=== PATIENT | male | born 1945 | race African-American/Black ===

== ENCOUNTER 2019-07-17 15:33 | IRF | payer MEDICARE, OTHER, SELFPAY ==
--- NOTE | ~2019-07-17 | NM_ITS ---
EXAMINATION: NM renal flow and function DATE: 08/09/2019 09:59 INDICATION: Acute kidney injury. TECHNIQUE: 8.5 mCi Tc-99m MAG3 was administered IV. The patient was scanned in the supine position. A posterior abdominal radionuclide angiogram was obtained. A subsequent time course of static images of the kidneys, ureters, and bladder was obtained. COMPARISON: Ultrasound kidneys 08/04/2019 FINDINGS: The posterior abdominal radionuclide angiogram and sequential static images show normal siz e, position, and morphology of the kidneys. Peak renal parenchymal uptake was 4 min in right kidney a nd 21 min in left kidney (normal peak 3-5 minutes). The relative early renal uptake was 73% on the r ight and 27% on the left (<40% is abnormal). No abnormalities of the ureters or bladder are seen. T1/2 for clearance of activity from the right kidney and proximal collecting system was >>20 minutes. T1/2 for clearance of activity from the left kidney and proximal collecting system was >>20 minutes. IMPRESSION: 1. Relatively decreased left kidney function, which is 27% of total renal function. 2. Delayed contrast clearance from both kidneys, consistent with decreased renal function. Reviewed, dictated and finalized at location A. IMPRESSION: 1. Relatively decreased left kidney function, which is 27% of total renal func tion. 2. Delayed contrast clearance from both kidneys, consistent with decreased chelle al function.
--- NOTE | ~2019-07-17 | XR_ITS ---
XR shoulder LT min 2V 07/30/2019 10:21 Indication: Left shoulder pain. Decreased movement. Procedure: 3 views left shoulder Comparison: No prior studies for comparison. Findings: No acute fracture is identified. There are degenerative changes of the acromioclavicular an d glenohumeral joints. There is slight inferior subluxation of the humeral head which may represent p seudosubluxation from joint effusion. Impression: 1: Slight inferior subluxation of the humeral head, possibly pseudosubluxation. No acute fracture krishna ntified. 2: Mild polyarticular osteoarthritis. Reviewed, dictated and finalized at location A. Impression: 1: Slight inferior subluxation of the humeral head, possibly pseudosubluxation. No acute fracture identified. 2: Mild polyarticular osteoarthritis.
--- NOTE | ~2019-07-17 | US_ITS ---
EXAMINATION: US renal BI DATE: 08/04/2019 10:34 INDICATION: Acute kidney injury. TECHNIQUE: Multiple ultrasound grayscale images of the kidneys were obtained. COMPARISON: None. FINDINGS: The right kidney measures 10.8 x 5.3 x 5.8 cm. The left kidney measures 9.3 x 5.1 x 5.4 cm. The kidne ys demonstrate normal parenchymal echogenicity. There is no hydronephrosis. The bladder is normal. IMPRESSION: 1. Normal kidney sizes. No hydronephrosis. Reviewed, dictated and finalized at location A.
--- NOTE | 2019-07-17 15:33 | ADMGEN ---
This patient, Hi Quinn, was admitted to [facility] Room 220-01. Patient/family oriented to hospital policies and general routines including ID bracelet, bed and alarms, visiting hours, pain management, procedures, bathroom and other care routines, personal items, smoking policy, room service/diet, and visiting hours. Valuables list has been completed. Information on how to activate the Rapid Response Team has been discussed. Patient/Family are encouraged to report perceived risks to care and to ask questions if they do not understand what they are told or what they should do.
--- NOTE | 2019-07-17 17:02 | ADMGEN ---
This patient, Hi Quinn, was admitted to [facility] Room 220-01. Patient/family oriented to hospital policies and general routines including ID bracelet, bed and alarms, visiting hours, pain management, procedures, bathroom and other care routines, personal items, smoking policy, room service/diet, and visiting hours. Valuables list has been completed. Information on how to activate the Rapid Response Team has been discussed. Patient/Family are encouraged to report perceived risks to care and to ask questions if they do not understand what they are told or what they should do.
[2019-07-17 17:04] VITALS: BP 152/56; PULSE 78; RESP 20; TEMP 37.3; O2SAT 100; BMI 28.1
[2019-07-17] MEDS: OXYBUTYNIN CHLORIDE 5 MG TABLET PO (17:43)
[2019-07-17 17:44] VITALS: PULSE 78
[2019-07-17] MEDS: carvediloL 6.25 MG TABLET PO (17:44)
[2019-07-17] MEDS: DOXAZOSIN MESYLATE 4 MG TABLET PO (20:23)
[2019-07-17] MEDS: TICAGRELOR 90 MG TABLET PO (20:23)
[2019-07-17 22:00] VITALS: BP 150/90; PULSE 82; RESP 18; TEMP 37.5; O2SAT 99
[2019-07-18] VITALS (8 sets, daily range): BP systolic 136–156; BP diastolic 71–83; PULSE 63–80; RESP 18–20; TEMP 37.1–37.2; O2SAT 98–100; BMI 28.1
[2019-07-18 04:52] LABS: Basophils Percent Auto 0.4 % (0.2-1.2); Eosinophils Absolute Auto 0.3 K/mm3 (0-0.3); Eosinophils Percent Auto 4.2 % (0-4.4); Hematocrit 31.2 % (42.0-52.0); Hemoglobin 10.6 g/dL (14.0-18.0); Immature Granulocyte Absolute 0.02 K/mm3 (0.00-0.031); Immature Granulocyte Percent A 0.3 % (0-0.5); Lymphocytes Absolute Auto 1.14 K/mm3 (0.9-3.2); Lymphocytes Percent Auto 16.9 % (18.3-44.2); Mean Corpuscular Volume 91.2 fl (80-100); Mean Platelet Volume 10.7 fl (7.4-10.4); Monocytes Absolute Auto 0.6 K/mm3 (0.1-0.6); Monocytes Percent Auto 9.1 % (2.6-8.5); Neutrophils Absolute Auto 4.7 K/mm3 (1.3-6.7); Neutrophils Percent Auto 69.1 % (45.5-73.1); Platelet Count Result 382 k/mm3 (150-375); Red Blood Count 3.42 M/mm3 (4.6-6.20); Red Cell Distribution Width 14.9 % (11.5-14.5); White Blood Count 6.7 K/mm3 (4.5-10.0)
[2019-07-18 05:04] LABS: Blood Urea Nitrogen 24 mg/dL (9-20); Carbon Dioxide 22 mmol/L (22-30); Chloride 111 mmol/L (98-107); Estimated CRCL calculation 36 ml/min; Estimated Glomerular Filt Rate > 60; Glucose 109 mg/dL (75-110); Potassium 3.8 mmol/L (3.4-5.0); Sodium 138 mmol/L (137-145)
[2019-07-18] MEDS: carvediloL 6.25 MG TABLET PO ×2 (09:41→16:53)
[2019-07-18] MEDS: ASPIRIN 81 MG CHEWABLE TABLET PO (09:41)
[2019-07-18] MEDS: ASCORBIC ACID 500 MG TABLET PO (09:41)
[2019-07-18] MEDS: TICAGRELOR 90 MG TABLET PO ×2 (09:41→21:16)
[2019-07-18] MEDS: OXYBUTYNIN CHLORIDE 5 MG TABLET PO ×3 (09:41→16:53)
[2019-07-18] MEDS: PANTOPRAZOLE 40 MG TABLET PO (09:41)
[2019-07-18] MEDS: ATORVASTATIN 40 MG TABLET 80 MG PO (09:42)
[2019-07-18] MEDS: polyethylene glycoL 3350 17 GM POWD.PACK PO (09:42)
[2019-07-18] MEDS: LOSARTAN POTASSIUM 100 MG TABLET PO (09:42)
[2019-07-18] MEDS: AMLODIPINE BESYLATE 5 MG TABLET 10 MG PO (09:42)
--- NOTE | 2019-07-18 10:33 | WPDREHABHP ---
H&P: HPI History of Present Illness Chief complaint: cva Narrative: Hi Quinn is a 74 year old male HISTORY OF PRESENT ILLNESS: The patient's primary rehab impairment category is 0 1/stroke The etiologic diagnosis is right internal carotid artery ischemic stroke I saw this patient [id number] on July 18, 2019 at 10:33 a.m. The patient is a 74-year-old right-handed Afro Maltese male with a past medical history of hypertension, tobacco abuse, hypothyroidism, gastroesophageal reflux disease and prostate cancer (status post prostatectomy / radiation ) who presented to [facility] Emergency Department with left-sided hemiparesis, facial droop, left-sided neglect and right gaze preference. He lives at home with son, he called out loudly for his son to come and help him at around 9:30 a.m. on the date happened his son found him on the kitchen floor. His son helped him up to the sofa. The son noticed he was slumping to the left and was unable to get up and take his medications. The son noticed facial drooping and called EMS. NIHSS was 20. TPA was administered at 11:44 a.m. and he was transferred to [facility] for thrombectomy evaluation. NIHSS on arrival to [place] was 12 and tPA was running. CTA showed a right internal carotid occlusion and proximal right M2. CT P showed a core of 0 and penumbra 55 milliliter. Transthoracic echocardiogram showed mild LVH and a PFO present. CT chest at no released was negative for signs of COVID-19. He was taken to the interventional Radiology suite [facility] and angiography was concerning for right cervical internal carotid stenosis without an intracranial lesion. He underwent angioplasty of the blocked region followed by stent placement and June 28, 2019. He was intubated in the interventional radiology suite and per protocol was not extubated. He was transferred to the neuro ICU on nicardipine drip. He was extubated shortly after evolved to ICU and is on room air. He was started on atorvastatin aspirin and Brilinta. He developed mild acute kidney injury and cough following extubation. He is now on room air and his oxygen saturation is 100%. On June 30, 2019 he failed his swallowing evaluation and he was started on tube feedings. He passed for her diet and July 09, 2019 and plans for G-tube were deferred. He has good p.o. intake when he is interested in the food he is presented. On July 03, 2019 he had a bout of supraventricular tachycardia and required adenosine, he aborted and is now on Coreg b.i.d.. Urinalysis was positive for urinary tract infection he was started on 5 day course of ceftriaxone. Cultures were never sent. He will be continued on aspirin atorvastatin Brilinta and he is on heparin for DVT prophylaxis because of dense left-sided almost hemiplegia The patient has not traveled outside the [place] or had contact with someone who is ill that has traveled outside the [place] in the past 21 days. The patient has not traveled to an area of the [place] that is experiencing known transmission of the Coronavirus and has not had close personal contact with anyone that has. The patient does not have a fever. The patient has no lower respiratory illness symptoms. The patient was tested for COVID-19 and July 01, 2019, July 07, 2019, July 12, 2019 and they were all negative. Therapy was initiated at the acute care facility and the patient transferred to us from [facility] on July 17, 2019 on FALLS OR SURGERIES: The patient has had major surgeries in the 100 days prior to admission. They had falls in the past year. They had falls with injury in the past year during this admission carotid stenting and it was followed by thrombectomy. PAST MEDICAL HISTORY: hypertension, tobacco abuse, hypothyroidism, gastroesophageal reflux disease, prostate cancer. PAST SURGICAL HISTORY: Prostatectomy followed by radiation SOCIAL HISTORY: patient is and son lives with the patient in
[2019-07-18] MEDS: HEPARIN SODIUM 5,000 UNITS/ML VIAL 5000 UNITS SUB-Q ×2 (13:18→21:16)
[2019-07-18] MEDS: IBUPROFEN 400 MG TABLET 800 MG PO (15:25)
--- NOTE | 2019-07-18 16:44 | RPD ---
INDIVIDUALIZED PLAN OF CARE FOR Hi Quinn Brief Synthesis of Pre-Admission Screen, Post-Admission Evaluation and Therapy Evaluations: The patient presents to rehab with right ICA ischemic stroke. Comorbidities include status post carotid angioplasty and stenting, hypertension, dysphagia, respiratory insufficiency, supraventricular tachycardia, history of prostate cancer, hypothyroidism, urinary tract infection, diabetes mellitus.The patient requires physician services for neurology services, medical oversight, and coordination of care.The patient needs physician monitoring and treatment of diabetes, supraventricular tachycardia, monitoring for adverse reactions to new medications, and monitoring for infection. The patient requires nursing services for frequent neuro checks, anticoagulation therapy, medication management and education, pressure relief and skin care management, monitoring of labs, bowel and bladder training, diabetes management and education, and fall/safety precautions. Deficits include:ADLs, Balance, Endurance, Family Training/Education, Mobility, ROM, Safety, Strength, Swallowing, Transfers, Cognition Track Grinder/Case Management for: Discharge Planning and Patient/Family Counseling Physical Therapy: 5 days per week for 60 minutes. Treatments may include: Therapeutic Exercise, Gait Training, Neuromuscular Re-education, Transfer Training, Community Reintegration, Bed Mobility, Patient/Family Education, Wheelchair Mobility Group Therapy/Concurrent Therapy Rationales: -Improve attention span during functional activities in a distracted environment. -Enhance problem solving and/or adequate judgment skills during functional activities in a distracted environment. -Promote increased safety awareness in a distracted environment to reduce fall risk with functional tasks, transfers, and ambulation to allow a more safe, self-sufficient return to the home environment. -Improve dynamic balance skills to promote safety and independence with functional activities in a distracted environment for maximum gain. Occupational Therapy: 5 days per week for 60 minutes. Treatments may include: Therapeutic Exercise, Therapeutic Activity, Cognitive Training, Self-Care Transfer Training, Community Reintegration, Home Management, Patient/Family Education, Wheelchair Mobility Training, Energy Conservation Training Group Therapy/Concurrent Therapy Rationales: -Allow therapist to observe and teach generalization and carry-over of skills learned in individual therapy. -Enhance problem solving and sequencing skills during therapeutic activities in a distracted environment. -Promote increased safety awareness in a realistic setting to reduce fall risk with functional tasks due to visual and verbal distractions. -Increase functional level with ADLs, ADL transfers and use of adaptive equipment through therapeutic activities with others while promoting safety to allow a more safe, self-sufficient return home. Speech Therapy: 5 days per week for 60 minutes. Treatments may include: Dysphasia Therapy, Speech/Language/Communication Therapy, Cognitive Training, Patient/Family Education Group Therapy/Concurrent Therapy - Rationale: -Allow therapist to observe and teach generalization and carry-over of skills learned in individual therapy. -Improve comprehension skills with complex or abstract ideas through discussion in a realistic setting. -Enhance problem solving skills with complex issues during activities in a distracted environment. -Promote increased memory skills and concentration in a distracted environment for a safe transition home. -Improve attention and focus with language/communication skills in a realistic and supportive therapeutic setting. -Allow for practice of expression of basic needs and ideas through functional activities with others. Medical Prognosis: Good Anticipated Length of Stay: 21 days Rehab Goals: Eating Goal: 06-Independent Oral Hygiene [place]
--- NOTE | 2019-07-18 17:22 | PCSTNOTE ---
Please refer to the Bedside Swallow Evaluation in the EMR.
[2019-07-18] MEDS: DOXAZOSIN MESYLATE 4 MG TABLET PO (21:16)
[2019-07-19] VITALS (7 sets, daily range): BP systolic 145–169; BP diastolic 64–75; PULSE 75–86; RESP 20; TEMP 36.6–37.3; O2SAT 97–100
[2019-07-19] MEDS: HEPARIN SODIUM 5,000 UNITS/ML VIAL 5000 UNITS SUB-Q ×3 (05:19→20:41)
[2019-07-19] MEDS: PANTOPRAZOLE 40 MG TABLET PO (10:12)
[2019-07-19] MEDS: ATORVASTATIN 40 MG TABLET 80 MG PO (10:12)
[2019-07-19] MEDS: OXYBUTYNIN CHLORIDE 5 MG TABLET PO ×3 (10:12→17:44)
[2019-07-19] MEDS: LOSARTAN POTASSIUM 100 MG TABLET PO (10:12)
[2019-07-19] MEDS: ASPIRIN 81 MG CHEWABLE TABLET PO (10:13)
[2019-07-19] MEDS: ASCORBIC ACID 500 MG TABLET PO (10:13)
[2019-07-19] MEDS: carvediloL 6.25 MG TABLET PO ×2 (10:13→17:44)
[2019-07-19] MEDS: AMLODIPINE BESYLATE 5 MG TABLET 10 MG PO (10:13)
[2019-07-19] MEDS: CHOLECALCIFEROL 1,000 UNIT TABLET 5000 UNITS PO (10:13)
[2019-07-19] MEDS: TICAGRELOR 90 MG TABLET PO ×2 (10:14→20:42)
[2019-07-19] MEDS: polyethylene glycoL 3350 17 GM POWD.PACK PO (10:14)
--- NOTE | 2019-07-19 11:43 | WPDNEURORHBP ---
Subjective Date/time seen: 07/19/19 11:43 Interval history: this 74-year-old Afro-[place] gentleman is here after having had a right hemispheric stroke with significant left-sided hemiparesis left-sided neglect and left-sided visual field defect he is stable denies any headache nausea vomiting chest pain or shortness of breath medications were reviewed and confirmed Review of Systems Review of Systems: All systems reviewed & are unremarkable except as noted in HPI and below Functional Status Ambulation Ability Ambulation Assistive Devices: Parallel Bars Transfers Ability Ability to Transfer In/Out of Chair: Maximum Assistance X 1 Exam Const: General: comfortable and no acute distress HENMT: General nose exam: Normal nares present Mouth: Yes moist mucous membranes Eyes: General: appearance normal, both eyes and all related structures Neck: Neck: supple and no JVD Resp: Effort & Inspection: normal respiratory effort Auscultation: clear to auscultation bilaterally Cardio: Rate: regular rate Rhythm: regular rhythm GI: GI Palp: Yes Soft to palpation Auscultation: normal bowel sounds Skin: General skin exam: normal color and no rashes or lesions noted Neuro: Other: patient is awake and alert will oriented has a left-sided dense hemiparesis left-sided visual field defect and left-sided neglect and needs significant assistance is all the activities of daily living Extrem: General: normal to inspection Psych: Mental Status: mental status grossly normal Objective Data Vital Signs Vital Signs: Vital Signs - 24 hr 07/18/19 14:00 07/18/19 15:25 07/18/19 16:53 Temperature 37.2 C 37.2 C Pulse Rate 80 80 Respiratory Rate 18 Blood Pressure 136/83 Pulse Oximetry 100 07/18/19 20:00 07/18/19 22:00 07/19/19 06:00 Temperature 37.1 C 37.1 C Pulse Rate 63 63 86 Respiratory Rate 20 20 20 Blood Pressure 138/71 169/75 H Pulse Oximetry 98 98 100 07/19/19 08:00 07/19/19 10:13 Temperature Pulse Rate 86 86 Respiratory Rate 20 Blood Pressure Pulse Oximetry 100 Intake/Output Intake/Output: Intake & Output 07/16/19 07/17/19 07/18/19 07/19/19 23:59 23:59 23:59 23:59 Intake Total 240 840 240 Balance 240 840 240 Meds/Results Medications: Active Medications Generic Name Dose Route Start Last Admin Trade Name Freq PRN Reason Stop Dose Admin Acetaminophen 650 mg 07/17/19 17:06 Tylenol Tablet PO Q4H PRN Pain (Scale Score 1-3) Amlodipine Besylate 10 mg 07/18/19 09:00 07/19/19 10:13 Norvasc PO 10 mg DAILY GREER Administration Ascorbic Acid 500 mg 07/18/19 09:00 07/19/19 10:13 Vitamin C PO 500 mg DAILY GREER Administration Aspirin 81 mg 07/18/19 09:00 07/19/19 10:13 Aspirin Chewable PO 81 mg DAILY GREER Administration Atorvastatin Calcium 80 mg 07/18/19 09:00 07/19/19 10:12 Lipitor PO 80 mg DAILY GREER Administration Carvedilol 6.25 mg 07/17/19 17:20 07/19/19 10:13 Coreg PO 6.25 mg BIDWM GREER Administration Doxazosin Mesylate 4 mg 07/17/19 21:00 07/18/19 21:16 Cardura PO 4 mg HS GREER Administration Heparin Sodium (Porcine) 5,000 units 07/18/19 14:00 07/19/19 05:19 Heparin Sodium SUB-Q 5,000 units Q8HR GREER Administration Ibuprofen 800 mg 07/17/19 17:06 07/18/19 15:25 Motrin PO 800 mg TID PRN Administration Moderate Pain (Scale Score 5-6) Losartan Potassium 100 mg 07/18/19 09:00 07/19/19 10:12 Cozaar PO 100 mg DAILY GREER Administration Oxybutynin Chloride 5 mg 07/17/19 17:15 07/19/19 10:12 Ditropan PO 5 mg TID GREER Administration Pantoprazole Sodium 40 mg 07/18/19 09:00 07/19/19 10:12 Protonix PO 40 mg QAM GREER Administration Polyethylene Glycol 17 gm 07/18/19 09:00 07/19/19 10:14 Miralax PO 17 gm DAILY GREER Administration Ticagrelor 90 mg 07/17/19 21:00 07/19/19 10:14 Brilinta PO 90 mg Q12HR GREER Administration Vitamin
[2019-07-19] MEDS: DOXAZOSIN MESYLATE 4 MG TABLET PO (20:41)
[2019-07-20] VITALS (7 sets, daily range): BP systolic 119–145; BP diastolic 56–67; PULSE 74–76; RESP 20; TEMP 37.2–38.4; O2SAT 96–100
[2019-07-20] MEDS: HEPARIN SODIUM 5,000 UNITS/ML VIAL 5000 UNITS SUB-Q ×3 (05:24→20:40)
[2019-07-20] MEDS: ASPIRIN 81 MG CHEWABLE TABLET PO (08:42)
[2019-07-20] MEDS: ASCORBIC ACID 500 MG TABLET PO (08:42)
[2019-07-20] MEDS: OXYBUTYNIN CHLORIDE 5 MG TABLET PO ×4 (08:42→20:40)
[2019-07-20] MEDS: ATORVASTATIN 40 MG TABLET 80 MG PO (08:42)
[2019-07-20] MEDS: TICAGRELOR 90 MG TABLET PO ×2 (08:42→20:40)
[2019-07-20] MEDS: PANTOPRAZOLE 40 MG TABLET PO (08:43)
[2019-07-20] MEDS: AMLODIPINE BESYLATE 5 MG TABLET 10 MG PO (08:43)
[2019-07-20] MEDS: carvediloL 6.25 MG TABLET PO ×2 (08:43→17:23)
[2019-07-20] MEDS: polyethylene glycoL 3350 17 GM POWD.PACK PO (08:44)
[2019-07-20] MEDS: LOSARTAN POTASSIUM 100 MG TABLET PO (08:50)
--- NOTE | 2019-07-20 15:16 | WPDNEURORHBP ---
Subjective Date/time seen: 07/20/19 15:16 Interval history: the patient is here post stroke with left-sided hemiplegia he is improving slowly denies any headache nausea vomiting chest pain or shortness of breath no fever chills or sore throat Review of Systems Review of Systems: All systems reviewed & are unremarkable except as noted in HPI and below Functional Status Ambulation Ability Ability to Ambulate 10 Feet: Maximum Assistance X 1 Ambulation Assistive Devices: Parallel Bars Transfers Ability Ability to Transfer In/Out of Chair: Maximum Assistance X 1 Exam Const: General: comfortable and no acute distress HENMT: General nose exam: Normal nares present Mouth: Yes moist mucous membranes Eyes: General: appearance normal, both eyes and all related structures Neck: Neck: supple and no JVD Resp: Effort & Inspection: normal respiratory effort Auscultation: clear to auscultation bilaterally Cardio: Rate: regular rate Rhythm: regular rhythm GI: GI Palp: Yes Soft to palpation Auscultation: normal bowel sounds Skin: General skin exam: normal color and no rashes or lesions noted Neuro: Other: patient is awake and alert well oriented is pretty much communicative and not any distress left-sided hemiplegia is stable with slow improvement he is engaged and quite motivated Extrem: General: normal to inspection Psych: Mental Status: mental status grossly normal Objective Data Vital Signs Vital Signs: Vital Signs - 24 hr 07/19/19 17:44 07/19/19 20:00 07/19/19 22:00 Temperature 37.3 C Pulse Rate 82 75 75 Respiratory Rate 20 20 Blood Pressure 145/64 H Pulse Oximetry 97 97 07/20/19 06:00 07/20/19 08:43 Temperature 37.2 C Pulse Rate 76 76 Respiratory Rate 20 Blood Pressure 145/67 H Pulse Oximetry 96 Intake/Output Intake/Output: Intake & Output 07/17/19 07/18/19 07/19/19 07/20/19 23:59 23:59 23:59 23:59 Intake Total 240 840 720 240 Balance 240 840 720 240 Meds/Results Medications: Active Medications Generic Name Dose Route Start Last Admin Trade Name Freq PRN Reason Stop Dose Admin Acetaminophen 650 mg 07/17/19 17:06 Tylenol Tablet PO Q4H PRN Pain (Scale Score 1-3) Amlodipine Besylate 10 mg 07/18/19 09:00 07/20/19 08:43 Norvasc PO 10 mg DAILY GREER Administration Ascorbic Acid 500 mg 07/18/19 09:00 07/20/19 08:42 Vitamin C PO 500 mg DAILY GREER Administration Aspirin 81 mg 07/18/19 09:00 07/20/19 08:42 Aspirin Chewable PO 81 mg DAILY GREER Administration Atorvastatin Calcium 80 mg 07/18/19 09:00 07/20/19 08:42 Lipitor PO 80 mg DAILY GREER Administration Carvedilol 6.25 mg 07/17/19 17:20 07/20/19 08:43 Coreg PO 6.25 mg BIDWM GREER Administration Doxazosin Mesylate 4 mg 07/17/19 21:00 07/19/19 20:41 Cardura PO 4 mg HS GREER Administration Heparin Sodium (Porcine) 5,000 units 07/18/19 14:00 07/20/19 13:07 Heparin Sodium SUB-Q 5,000 units Q8HR GREER Administration Ibuprofen 800 mg 07/17/19 17:06 07/18/19 15:25 Motrin PO 800 mg TID PRN Administration Moderate Pain (Scale Score 5-6) Losartan Potassium 100 mg 07/18/19 09:00 07/20/19 08:50 Cozaar PO 100 mg DAILY GREER Administration Oxybutynin Chloride 5 mg 07/17/19 17:15 07/20/19 13:07 Ditropan PO 5 mg TID GREER Administration Pantoprazole Sodium 40 mg 07/18/19 09:00 07/20/19 08:43 Protonix PO 40 mg QAM GREER Administration Polyethylene Glycol 17 gm 07/18/19 09:00 07/20/19 08:44 Miralax PO 17 gm DAILY GREER Administration Ticagrelor 90 mg 07/17/19 21:00 07/20/19 08:42 Brilinta PO 90 mg Q12HR GREER Administration Tramadol HCl 50 mg 07/19/19 12:57 Ultram PO Q4H PRN Pain Rated 4-6 Vitamin D 5,000 unit 07/19/19 09:00 07/19/19 10:13 Vitamin D PO 5,000 unit [id number] GREER Administration Progress Note: A&P Assessment and Plan (1) Status post ad
[2019-07-20] MEDS: DOXAZOSIN MESYLATE 4 MG TABLET PO (20:40)
[2019-07-20] MEDS: SENNOSIDES 8.6 MG TABLET PO (20:40)
[2019-07-21] MEDS: HEPARIN SODIUM 5,000 UNITS/ML VIAL 5000 UNITS SUB-Q ×3 (05:56→20:33)
[2019-07-21 06:00] VITALS: BP 150/78; PULSE 94; RESP 18; TEMP 36.9; O2SAT 95
[2019-07-21 09:41] VITALS: PULSE 94
[2019-07-21] MEDS: carvediloL 6.25 MG TABLET PO ×2 (09:41→17:42)
[2019-07-21] MEDS: AMLODIPINE BESYLATE 5 MG TABLET 10 MG PO (09:41)
[2019-07-21] MEDS: ASPIRIN 81 MG CHEWABLE TABLET PO (09:41)
[2019-07-21] MEDS: ASCORBIC ACID 500 MG TABLET PO (09:42)
[2019-07-21] MEDS: TICAGRELOR 90 MG TABLET PO ×2 (09:42→20:31)
[2019-07-21] MEDS: LOSARTAN POTASSIUM 100 MG TABLET PO ×2 (09:42→20:31)
[2019-07-21] MEDS: ATORVASTATIN 40 MG TABLET 80 MG PO (09:43)
[2019-07-21] MEDS: PANTOPRAZOLE 40 MG TABLET PO (09:43)
[2019-07-21 10:05] VITALS: PULSE 96; RESP 18; O2SAT 94
[2019-07-21] MEDS: OXYBUTYNIN CHLORIDE 5 MG TABLET PO ×2 (12:54→17:42)
[2019-07-21 14:00] VITALS: BP 137/61; PULSE 70; RESP 16; TEMP 37.4; O2SAT 100
[2019-07-21 17:42] VITALS: PULSE 68
--- NOTE | 2019-07-21 17:56 | WPDNEURORHBP ---
Subjective Date/time seen: 07/21/19 17:56 Interval history: this 74-year-old from a [place] gentleman is here after having had a right hemispheric stroke with left-sided hemiparesis he is doing fairly well engage in therapy and motivated and slowly improving He does not have headache nausea vomiting chest pain shortness of breath fever chills sore throat Review of Systems Review of Systems: All systems reviewed & are unremarkable except as noted in HPI and below Functional Status Ambulation Ability Ability to Ambulate 10 Feet: Maximum Assistance X 1 Ambulation Assistive Devices: Parallel Bars Transfers Ability Ability to Transfer In/Out of Chair: Maximum Assistance X 1 Exam Const: General: comfortable and no acute distress HENMT: General nose exam: Normal nares present Mouth: Yes moist mucous membranes Eyes: General: appearance normal, both eyes and all related structures Neck: Neck: supple and no JVD Resp: Effort & Inspection: normal respiratory effort Auscultation: clear to auscultation bilaterally Cardio: Rate: regular rate Rhythm: regular rhythm GI: GI Palp: Yes Soft to palpation Auscultation: normal bowel sounds Skin: General skin exam: normal color and no rashes or lesions noted Neuro: Other: patient is awake and alert well oriented with fluent speech language functions and moderately severe left-sided hemiparesis left-sided neglect and left-sided visual field defect Extrem: General: normal to inspection Psych: Mental Status: mental status grossly normal Objective Data Vital Signs Vital Signs: Vital Signs - 24 hr 07/20/19 20:00 07/20/19 21:51 07/21/19 06:00 Temperature 38.4 C H 36.9 C Pulse Rate 74 74 94 Respiratory Rate 20 20 18 Blood Pressure 132/60 150/78 H Pulse Oximetry 99 99 95 07/21/19 09:41 07/21/19 10:05 07/21/19 14:00 Temperature 37.4 C Pulse Rate 94 96 70 Respiratory Rate 18 16 Blood Pressure 137/61 Pulse Oximetry 94 100 07/21/19 17:42 Temperature Pulse Rate 68 Respiratory Rate Blood Pressure Pulse Oximetry Intake/Output Intake/Output: Intake & Output 07/18/19 07/19/19 07/20/19 07/21/19 23:59 23:59 23:59 23:59 Intake Total 840 720 720 720 Balance 840 720 720 720 Meds/Results Medications: Active Medications Generic Name Dose Route Start Last Admin Trade Name Freq PRN Reason Stop Dose Admin Acetaminophen 650 mg 07/17/19 17:06 Tylenol Tablet PO Q4H PRN Pain (Scale Score 1-3) Amlodipine Besylate 10 mg 07/22/19 12:00 Norvasc PO NOON [facility] Ascorbic Acid 500 mg 07/18/19 09:00 07/21/19 09:42 Vitamin C PO 500 mg DAILY GREER Administration Aspirin 81 mg 07/18/19 09:00 07/21/19 09:41 Aspirin Chewable PO 81 mg DAILY GREER Administration Atorvastatin Calcium 80 mg 07/22/19 12:00 Lipitor PO NOON GREER Carvedilol 6.25 mg 07/17/19 17:20 07/21/19 17:42 Coreg PO 6.25 mg BIDWM GREER Administration Doxazosin Mesylate 4 mg 07/17/19 21:00 07/20/19 20:40 Cardura PO 4 mg HS GREER Administration Heparin Sodium (Porcine) 5,000 units 07/18/19 14:00 07/21/19 12:55 Heparin Sodium SUB-Q 5,000 units Q8HR GREER Administration Ibuprofen 800 mg 07/17/19 17:06 07/18/19 15:25 Motrin PO 800 mg TID PRN Administration Moderate Pain (Scale Score 5-6) Losartan Potassium 100 mg 07/21/19 21:00 Cozaar PO HS GREER Oxybutynin Chloride 5 mg 07/17/19 17:15 07/21/19 17:42 Ditropan PO 5 mg TID GREER Administration Pantoprazole Sodium 40 mg 07/18/19 09:00 07/21/19 09:43 Protonix PO 40 mg QAM GREER Administration Senna 8.6 mg 07/20/19 21:00 07/20/19 20:40 Senokot Tablet PO 8.6 mg HS GREER Administration Ticagrelor 90 mg 07/17/19 21:00 07/21/19 09:42 Brilinta PO 90 mg Q12HR GREER Administration Tramadol HCl 50 mg 07/19/19 12:57 Ultram PO Q4H PRN Pain Rated 4-6 Vitamin D 5,000 unit 07/19/19 09:00 07/19/19 10:
[2019-07-21] MEDS: DOXAZOSIN MESYLATE 4 MG TABLET PO (20:30)
[2019-07-21] MEDS: SENNOSIDES 8.6 MG TABLET PO (20:31)
[2019-07-21 22:00] VITALS: BP 146/87; PULSE 65; RESP 18; TEMP 38; O2SAT 100
[2019-07-22] MEDS: HEPARIN SODIUM 5,000 UNITS/ML VIAL 5000 UNITS SUB-Q ×3 (05:31→20:23)
[2019-07-22 05:59] VITALS: BP 125/61; PULSE 69; RESP 18; TEMP 37.6; O2SAT 100
[2019-07-22] MEDS: OXYBUTYNIN CHLORIDE 5 MG TABLET PO ×3 (08:25→17:40)
[2019-07-22 08:26] VITALS: PULSE 69
[2019-07-22] MEDS: ASPIRIN 81 MG CHEWABLE TABLET PO (08:26)
[2019-07-22] MEDS: ASCORBIC ACID 500 MG TABLET PO (08:26)
[2019-07-22] MEDS: carvediloL 6.25 MG TABLET PO ×2 (08:26→17:40)
[2019-07-22] MEDS: CHOLECALCIFEROL 1,000 UNIT TABLET 5000 UNITS PO (08:26)
[2019-07-22] MEDS: TICAGRELOR 90 MG TABLET PO ×2 (08:26→20:23)
[2019-07-22] MEDS: PANTOPRAZOLE 40 MG TABLET PO (08:26)
--- NOTE | 2019-07-22 09:42 | WPDNEURORHBP ---
Subjective Date/time seen: 09:42 Left hemiparesis ,hypertension,Gerd, prostatic cancer Review of Systems Review of Systems: All systems reviewed & are unremarkable except as noted in HPI and below Functional Status Ambulation Ability Ability to Ambulate 10 Feet: Maximum Assistance X 1 Ambulation Assistive Devices: Parallel Bars Transfers Ability Ability to Transfer In/Out of Chair: Maximum Assistance X 1 Exam Const: General: cooperative, comfortable and no acute distress HENMT: Head: normal to inspection General nose exam: Normal external nose present and No nasal discharge present Mouth: Yes Normal oral and palatal mucosa present Eyes: General: appearance normal, both eyes and all related structures Neck: Neck: full ROM Resp: Effort & Inspection: normal respiratory effort Auscultation: clear to auscultation bilaterally Cardio: Rate: regular rate Rhythm: regular rhythm GI: Percussion: Yes normal to percussion Auscultation: normal bowel sounds Skin: General skin exam: no rashes or lesions noted Neuro: General: patient oriented x3 and moves all extremities Cranial nerves: Yes Equal, round and reactive pupils present, Yes Bilaterally intact EOM present, Yes Nystagmus not present, Yes Midline tongue present, Yes Ability to bilaterally rotate head present and Yes Ability to bilaterally elevate shoulders present Cognition (Neuro): normal cognition Speech: normal speech Gait exam (Neuro): Assisted gait required Motor exam (neuro): Abnormal motor strength present (left hemiparesis) Sensory Exam: Sensory deficit (Neuro) Extrem: General: normal to inspection Psych: Appearance: grossly normal Objective Data Vital Signs Vital Signs: Vital Signs - 24 hr 07/21/19 10:05 07/21/19 14:00 07/21/19 17:42 Temperature 37.4 C Pulse Rate 96 70 68 Respiratory Rate 18 16 Blood Pressure 137/61 Pulse Oximetry 94 100 07/21/19 22:00 07/22/19 05:59 07/22/19 08:26 Temperature 38.0 C H 37.6 C Pulse Rate 65 69 69 Respiratory Rate 18 18 Blood Pressure 146/87 H 125/61 Pulse Oximetry 100 100 Intake/Output Intake/Output: Intake & Output 07/19/19 07/20/19 07/21/19 07/22/19 23:59 23:59 23:59 23:59 Intake Total 558 381 3522 240 Balance 486 344 1349 240 Meds/Results Medications: Active Medications Generic Name Dose Route Start Last Admin Trade Name Freq PRN Reason Stop Dose Admin Acetaminophen 650 mg 07/17/19 17:06 Tylenol Tablet PO Q4H PRN Pain (Scale Score 1-3) Amlodipine Besylate 10 mg 07/22/19 12:00 Norvasc PO NOON [facility] Ascorbic Acid 500 mg 07/18/19 09:00 07/22/19 08:26 Vitamin C PO 500 mg DAILY GREER Administration Aspirin 81 mg 07/18/19 09:00 07/22/19 08:26 Aspirin Chewable PO 81 mg DAILY GREER Administration Atorvastatin Calcium 80 mg 07/22/19 12:00 Lipitor PO NOON [facility]ER Carvedilol 6.25 mg 07/17/19 17:20 07/22/19 08:26 Coreg PO 6.25 mg BIDWM GREER Administration Doxazosin Mesylate 4 mg 07/17/19 21:00 07/21/19 20:30 Cardura PO 4 mg HS GREER Administration Heparin Sodium (Porcine) 5,000 units 07/18/19 14:00 07/22/19 05:31 Heparin Sodium SUB-Q 5,000 units Q8HR [facility]ER Administration Ibuprofen 800 mg 07/17/19 17:06 07/18/19 15:25 Motrin PO 800 mg TID PRN Administration Moderate Pain (Scale Score 5-6) Losartan Potassium 100 mg 07/21/19 21:00 07/21/19 20:31 Cozaar PO 100 mg HS GREER Administration Oxybutynin Chloride 5 mg 07/17/19 17:15 07/22/19 08:25 Ditropan PO 5 mg TID GREER Administration Pantoprazole Sodium 40 mg 07/18/19 09:00 07/22/19 08:26 Protonix PO 40 mg QAM GREER Administration Senna 8.6 mg 07/20/19 21:00 07/21/19 20:31 Senokot Tablet PO 8.6 mg HS GREER Administration Ticagrelor 90 mg 07/17/19 21:00 07/22/19 08:26 Brilinta PO 90 mg Q12HR GREER Administration Tramadol HCl 50 mg 07/19/19 12:57 Ultram PO Q4H
--- NOTE | 2019-07-22 10:17 | PCPTNOTE ---
Shayla Rich WILVER Mclean completed an inpatient rehab wheelchair evaluation on Hi Quinn on 07/22/2019. The patient is unable to safely and independently ambulate household distances due to their current impairments. Their diagnosis is cva and their impairments include decreased strength, decreased endurance, decreased range of motion, decreased balance, and lower extremity weakness. Hi's weight bearing status is weight-bearing as tolerated on the bilateral lower legs. The patient demonstrates significant functional mobility limitations that impair their ability to participate in mobility-related activities of daily living (MRADLs), including toileting, feeding, dressing, grooming, and bathing in the customary locations in the home. These limitations cannot be sufficiently resolved by the use of an appropriately fitted cane or walker. It is recommended that the patient utilize a wheelchair for functional mobility within the home in order to facilitate optimal safety, independence and participation in all MRADL's and adequately access their home environment on a regular basis. The patient's home provides adequate access between rooms, maneuvering space, and surfaces to accommodate the recommended wheelchair. The use of a wheelchair for functional mobility is strongly recommended and the patient is receptive to using the wheelchair. The use of this wheelchair will significantly improve the patient's ability to participate in MRADLS and the patient will use it on a regular basis in the home. This will facilitate optimal safety, independence, and participation. The patient has demonstrated sufficient physical and mental capabilities needed to safely propel a manual wheelchair that is provided in the home during a typical day. Recommended Wheelchair Frame: standard Recommended Wheelchair Size: 18x18 Recommended Wheelchair Cushion:standard Wheelchair Leg Recommendations: swing away leg rests - Anti-tippers are recommended due to patient demonstrating increased risk for falls. They would benefit from anti-tippers with added safety and stabilization. -A LEFT arm trough is recommended because the patient has hemiplegia. -A LEFT break drug regulatory affairs specialist is recommended to facilitate independence with wheelchair breaks management due to hemiplegia of left side. Shayla Mclean PARKING ATTENDANT 07/22/2019 Evaluating Therapist Date I agree with and certify that the above recommendation is medically necessary. Referring Physician Date I agree with and certify that the above recommendation is medically necessary. Referring Physician Date
[2019-07-22] MEDS: ATORVASTATIN 40 MG TABLET 80 MG PO (13:25)
[2019-07-22] MEDS: AMLODIPINE BESYLATE 5 MG TABLET 10 MG PO (13:26)
[2019-07-22 14:00] VITALS: BP 128/64; PULSE 68; RESP 18; TEMP 36.5; O2SAT 97
[2019-07-22 17:40] VITALS: PULSE 68
[2019-07-22] MEDS: SENNOSIDES 8.6 MG TABLET PO (20:23)
[2019-07-22] MEDS: LOSARTAN POTASSIUM 100 MG TABLET PO (20:23)
[2019-07-22] MEDS: DOXAZOSIN MESYLATE 4 MG TABLET PO (20:23)
[2019-07-22 22:00] VITALS: BP 153/71; PULSE 77; RESP 18; TEMP 37.2; O2SAT 100
[2019-07-23] MEDS: HEPARIN SODIUM 5,000 UNITS/ML VIAL 5000 UNITS SUB-Q ×3 (05:34→21:14)
[2019-07-23 06:00] VITALS: BP 146/79; PULSE 97; RESP 18; TEMP 36.9; O2SAT 100
[2019-07-23 08:00] VITALS: PULSE 97; RESP 18; O2SAT 100
[2019-07-23 10:29] VITALS: PULSE 97
[2019-07-23] MEDS: OXYBUTYNIN CHLORIDE 5 MG TABLET PO ×3 (10:29→17:51)
[2019-07-23] MEDS: carvediloL 6.25 MG TABLET PO ×2 (10:29→17:51)
[2019-07-23] MEDS: ASCORBIC ACID 500 MG TABLET PO (10:29)
[2019-07-23] MEDS: PANTOPRAZOLE 40 MG TABLET PO (10:29)
[2019-07-23] MEDS: ASPIRIN 81 MG CHEWABLE TABLET PO (10:29)
[2019-07-23] MEDS: TICAGRELOR 90 MG TABLET PO ×2 (10:30→21:15)
--- NOTE | 2019-07-23 13:08 | PCDIET ---
Nutrition Follow-Up Complete: Nutrition Diagnosis: Decreased sodium needs related to cardiovascular disease as evidenced by hx CVA, HTN. Nutrition Goal: Patient to consume 75% of meals or greater. Goal met. Patient consuming 100% of most meals on regular diet. Last recorded weight is 74.5 kg. Recommend obtaining new weight. Bowel Motility: +BM today. Labs Reviewed: No new chemistry available. Meds Noted: Vitamin C, Protonix, Senna, Vitamin D Additional Notes: No documented skin breakdown. Will continue to monitor with same goal. Nutrition Monitoring and Evaluation: Follow up every 7 days.
--- NOTE | 2019-07-23 13:19 | WPDNEURORHBP ---
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 and left-sided neglect speech is involved the patient is doing fairly well his vitamins have been discontinued according to his desire from the nursing standpoint he is doing fairly well is on heparin for DVT prophylaxis on occupational therapy on a is doing fairly well and PT he is taking a few steps He denies any headache nausea vomiting chest pain shortness of breath fever chills or sore throat Review of Systems Review of Systems: All systems reviewed & are unremarkable except as noted in HPI and below Functional Status Ambulation Ability Ability to Ambulate 10 Feet: Moderate Assistance X 1 Ambulation Assistive Devices: Railings Transfers Ability Ability to Transfer In/Out of Chair: Maximum Assistance X 1 Exam Const: General: comfortable and no acute distress HENMT: General nose exam: Normal nares present Mouth: Yes moist mucous membranes Eyes: General: appearance normal, both eyes and all related structures Neck: Neck: supple and no JVD Resp: Effort & Inspection: normal respiratory effort Auscultation: clear to auscultation bilaterally Cardio: Rate: regular rate Rhythm: regular rhythm GI: GI Palp: Yes Soft to palpation Auscultation: normal bowel sounds Skin: General skin exam: normal color and no rashes or lesions noted Neuro: Other: patient is awake and alert well oriented has left-sided visual field defect left-sided neglect and cognitive deficit related to right cerebral hemisphere and of course moderately severe left-sided hemiparesis Extrem: General: normal to inspection Psych: Mental Status: mental status grossly normal Objective Data Vital Signs Vital Signs: Vital Signs - 24 hr 07/22/19 14:00 07/22/19 17:40 07/22/19 22:00 Temperature 36.5 C 37.2 C Pulse Rate 68 68 77 Respiratory Rate 18 18 Blood Pressure 128/64 153/71 H Pulse Oximetry 97 100 07/23/19 06:00 07/23/19 08:00 07/23/19 10:29 Temperature 36.9 C Pulse Rate 97 97 97 Respiratory Rate 18 18 Blood Pressure 146/79 H Pulse Oximetry 100 100 Intake/Output Intake/Output: Intake & Output 07/20/19 07/21/19 07/22/19 07/23/19 23:59 23:59 23:59 23:59 Intake Total 720 1200 960 360 Balance 720 1200 960 360 Meds/Results Medications: Active Medications Generic Name Dose Route Start Last Admin Trade Name Freq PRN Reason Stop Dose Admin Acetaminophen 650 mg 07/17/19 17:06 Tylenol Tablet PO Q4H PRN Pain (Scale Score 1-3) Amlodipine Besylate 10 mg 07/22/19 12:00 07/22/19 13:26 Norvasc PO 10 mg NOON GREER Administration Ascorbic Acid 500 mg 07/18/19 09:00 07/23/19 10:29 Vitamin C PO 500 mg DAILY GREER Administration Aspirin 81 mg 07/18/19 09:00 07/23/19 10:29 Aspirin Chewable PO 81 mg DAILY GREER Administration Atorvastatin Calcium 80 mg 07/22/19 12:00 07/22/19 13:25 Lipitor PO 80 mg NOON GREER Administration Carvedilol 6.25 mg 07/17/19 17:20 07/23/19 10:29 Coreg PO 6.25 mg BIDWM GREER Administration Doxazosin Mesylate 4 mg 07/17/19 21:00 07/22/19 20:23 Cardura PO 4 mg HS GREER Administration Heparin Sodium (Porcine) 5,000 units 07/18/19 14:00 07/23/19 05:34 Heparin Sodium SUB-Q 5,000 units Q8HR GREER Administration Ibuprofen 800 mg 07/17/19 17:06 07/18/19 15:25 Motrin PO 800 mg TID PRN Administration Moderate Pain (Scale Score 5-6) Losartan Potassium 100 mg 07/21/19 21:00 07/22/19 20:23 Cozaar PO 100 mg HS GREER Administration Oxybutynin Chloride 5 mg 07/17/19 17:15 07/23/19 10:29 Ditropan PO 5 mg TID GREER Administration Pantoprazole Sodium 40 mg 07/18/19 09:00 07/23/19 10:29 Protonix PO 40 mg QAM GREER Administration Senna 8.6 mg 07/20/19 21:00 07/22/19 20:23 Senokot Tablet PO
[2019-07-23] MEDS: ATORVASTATIN 40 MG TABLET 80 MG PO (13:25)
[2019-07-23] MEDS: AMLODIPINE BESYLATE 5 MG TABLET 10 MG PO (13:25)
[2019-07-23 14:00] VITALS: BP 161/94; PULSE 89; RESP 18; TEMP 37.4; O2SAT 100
[2019-07-23 17:51] VITALS: PULSE 89
[2019-07-23] MEDS: LOSARTAN POTASSIUM 100 MG TABLET PO (21:15)
[2019-07-23] MEDS: DOXAZOSIN MESYLATE 4 MG TABLET PO (21:15)
[2019-07-23] MEDS: SENNOSIDES 8.6 MG TABLET PO (21:15)
[2019-07-23 22:00] VITALS: BP 169/81; PULSE 76; RESP 19; TEMP 38; O2SAT 100
[2019-07-24] MEDS: HEPARIN SODIUM 5,000 UNITS/ML VIAL 5000 UNITS SUB-Q ×3 (05:28→21:18)
[2019-07-24 06:00] VITALS: BP 153/71; PULSE 78; RESP 18; TEMP 37.3; O2SAT 97
--- NOTE | 2019-07-24 09:38 | WPDNEURORHBP ---
Subjective Date/time seen: 07/24/19 09:38 Interval history: this 74-year-old gentleman is here after having had a stroke which has affected his left side which is slowly improving the nursing noted that he had some kind of an attitude however to me comes across the same Hi I have been seeing for past several days she denies any complaints of anger frustrations or any complaints whatsoever to her the nursing personnel in our are so he denies any headache nausea vomiting chest pain shortness of breath fever chills sore throat Review of Systems Review of Systems: All systems reviewed & are unremarkable except as noted in HPI and below Functional Status Ambulation Ability Ability to Ambulate 10 Feet: Moderate Assistance X 1 Ambulation Assistive Devices: Railings Transfers Ability Ability to Transfer In/Out of Chair: Maximum Assistance X 1 Exam Const: General: comfortable and no acute distress HENMT: General nose exam: Normal nares present Mouth: Yes moist mucous membranes Eyes: Other: left-sided neglect and left-sided visual field defect Neck: Neck: supple and no JVD Resp: Effort & Inspection: normal respiratory effort Auscultation: clear to auscultation bilaterally Cardio: Rate: regular rate Rhythm: regular rhythm GI: GI Palp: Yes Soft to palpation Auscultation: normal bowel sounds Skin: General skin exam: normal color and no rashes or lesions noted Neuro: Other: patient is awake and alert will oriented with left-sided visual field defect left-sided neglect and left-sided moderately severe hemiparesis which is slowly improving from Extrem: General: normal to inspection Psych: Mental Status: mental status grossly normal Objective Data Vital Signs Vital Signs: Vital Signs - 24 hr 07/23/19 10:29 07/23/19 14:00 07/23/19 17:51 Temperature 37.4 C Pulse Rate 97 89 89 Respiratory Rate 18 Blood Pressure 161/94 H Pulse Oximetry 100 07/23/19 22:00 07/24/19 06:00 Temperature 38.0 C H 37.3 C Pulse Rate 76 78 Respiratory Rate 19 18 Blood Pressure 169/81 H 153/71 H Pulse Oximetry 100 97 Intake/Output Intake/Output: Intake & Output 07/21/19 07/22/19 07/23/19 07/24/19 23:59 23:59 23:59 23:59 Intake Total 1200 960 840 240 Balance 1200 960 840 240 Meds/Results Medications: Active Medications Generic Name Dose Route Start Last Admin Trade Name Freq PRN Reason Stop Dose Admin Acetaminophen 650 mg 07/17/19 17:06 Tylenol Tablet PO Q4H PRN Pain (Scale Score 1-3) Amlodipine Besylate 10 mg 07/22/19 12:00 07/23/19 13:25 Norvasc PO 10 mg NOON GREER Administration Ascorbic Acid 500 mg 07/18/19 09:00 07/23/19 10:29 Vitamin C PO 500 mg DAILY GREER Administration Aspirin 81 mg 07/18/19 09:00 07/23/19 10:29 Aspirin Chewable PO 81 mg DAILY GREER Administration Atorvastatin Calcium 80 mg 07/22/19 12:00 07/23/19 13:25 Lipitor PO 80 mg NOON GREER Administration Carvedilol 6.25 mg 07/17/19 17:20 07/23/19 17:51 Coreg PO 6.25 mg BIDWM GREER Administration Doxazosin Mesylate 4 mg 07/17/19 21:00 07/23/19 21:15 Cardura PO 4 mg HS GREER Administration Heparin Sodium (Porcine) 5,000 units 07/18/19 14:00 07/24/19 05:28 Heparin Sodium SUB-Q 5,000 units Q8HR GREER Administration Ibuprofen 800 mg 07/17/19 17:06 07/18/19 15:25 Motrin PO 800 mg TID PRN Administration Moderate Pain (Scale Score 5-6) Losartan Potassium 100 mg 07/21/19 21:00 07/23/19 21:15 Cozaar PO 100 mg HS GREER Administration Oxybutynin Chloride 5 mg 07/17/19 17:15 07/23/19 17:51 Ditropan PO 5 mg TID GREER Administration Pantoprazole Sodium 40 mg 07/18/19 09:00 07/23/19 10:29 Protonix PO 40 mg QAM GREER Administration Senna 8.6 mg 07/20/19 21:00 07/23/19 21:15 Senokot Tablet PO 8.6 mg HS GREER Administration Ticagrelor 90 mg 07/17/19 21:00 07/23/19 21:15 Brilinta PO 90 mg Q12HR GREER Adm
[2019-07-24 09:50] VITALS: PULSE 78; RESP 18; O2SAT 97
[2019-07-24] MEDS: ASPIRIN 81 MG CHEWABLE TABLET PO (09:59)
[2019-07-24] MEDS: PANTOPRAZOLE 40 MG TABLET PO (09:59)
[2019-07-24] MEDS: ASCORBIC ACID 500 MG TABLET PO (10:00)
[2019-07-24] MEDS: CHOLECALCIFEROL 1,000 UNIT TABLET 5000 UNITS PO (10:00)
[2019-07-24 10:01] VITALS: PULSE 78
[2019-07-24] MEDS: carvediloL 6.25 MG TABLET PO ×2 (10:01→17:39)
[2019-07-24] MEDS: TICAGRELOR 90 MG TABLET PO ×2 (10:01→21:20)
[2019-07-24] MEDS: OXYBUTYNIN CHLORIDE 5 MG TABLET PO ×3 (10:01→17:39)
[2019-07-24] MEDS: AMLODIPINE BESYLATE 5 MG TABLET 10 MG PO (13:07)
[2019-07-24] MEDS: ATORVASTATIN 40 MG TABLET 80 MG PO (13:07)
[2019-07-24 14:29] VITALS: BP 163/70; PULSE 90; RESP 16; TEMP 37.4; O2SAT 97
--- NOTE | 2019-07-24 16:00 | PCPTNOTE ---
Hi Quinn was evaluated for a jonathan cane on 07/24/2019 by this physical therapist customer service assistant. The jonathan cane will resolve patient's mobility limitations and will be used for ADL's within the home. The patient can safely use the jonathan cane. ?The jonathan cane will resolve the patient?s mobility deficits, including decreased strength, endurance and balance.
[2019-07-24 17:39] VITALS: PULSE 86
[2019-07-24] MEDS: DOXAZOSIN MESYLATE 4 MG TABLET PO (21:20)
[2019-07-24] MEDS: SENNOSIDES 8.6 MG TABLET PO (21:21)
[2019-07-24] MEDS: LOSARTAN POTASSIUM 100 MG TABLET PO (21:21)
[2019-07-24 22:00] VITALS: BP 127/53; PULSE 66; RESP 16; TEMP 37.3; O2SAT 99
[2019-07-25 04:44] LABS: Basophils Percent Auto 0.8 % (0.2-1.2); Eosinophils Absolute Auto 0.3 K/mm3 (0-0.3); Eosinophils Percent Auto 6.5 % (0-4.4); Hematocrit 29.1 % (42.0-52.0); Hemoglobin 9.8 g/dL (14.0-18.0); Immature Granulocyte Absolute 0.02 K/mm3 (0.00-0.031); Immature Granulocyte Percent A 0.4 % (0-0.5); Lymphocytes Absolute Auto 1.34 K/mm3 (0.9-3.2); Lymphocytes Percent Auto 26.5 % (18.3-44.2); Mean Corpuscular HGB Conc 33.7 g/dl (32-36); Mean Corpuscular Hemoglobin 30.7 pg (26-34); Mean Corpuscular Volume 91.2 fl (80-100); Mean Platelet Volume 10.5 fl (7.4-10.4); Monocytes Absolute Auto 0.5 K/mm3 (0.1-0.6); Monocytes Percent Auto 10.7 % (2.6-8.5); Neutrophils Absolute Auto 2.8 K/mm3 (1.3-6.7); Neutrophils Percent Auto 55.1 % (45.5-73.1); Platelet Count Result 215 k/mm3 (150-375); Red Blood Count 3.19 M/mm3 (4.6-6.20); White Blood Count 5.1 K/mm3 (4.5-10.0)
[2019-07-25 04:58] LABS: Blood Urea Nitrogen 23 mg/dL (9-20); Calcium 9.4 mg/dL (8.4-10.2); Carbon Dioxide 25 mmol/L (22-30); Chloride 105 mmol/L (98-107); Estimated CRCL calculation 28 ml/min; Estimated Glomerular Filt Rate 48; Glucose 98 mg/dL (75-110); Potassium 3.9 mmol/L (3.4-5.0); Sodium 137 mmol/L (137-145)
[2019-07-25] MEDS: HEPARIN SODIUM 5,000 UNITS/ML VIAL 5000 UNITS SUB-Q ×3 (05:51→21:16)
[2019-07-25 06:00] VITALS: BP 150/76; PULSE 78; RESP 18; TEMP 36.4; O2SAT 100
[2019-07-25] MEDS: OXYBUTYNIN CHLORIDE 5 MG TABLET PO ×3 (09:30→17:24)
[2019-07-25 09:31] VITALS: PULSE 78
[2019-07-25] MEDS: carvediloL 6.25 MG TABLET PO ×2 (09:31→17:24)
[2019-07-25] MEDS: PANTOPRAZOLE 40 MG TABLET PO (09:31)
[2019-07-25] MEDS: TICAGRELOR 90 MG TABLET PO ×2 (09:31→20:25)
[2019-07-25] MEDS: ASCORBIC ACID 500 MG TABLET PO (09:32)
[2019-07-25] MEDS: ASPIRIN 81 MG CHEWABLE TABLET PO (09:32)
[2019-07-25] MEDS: ATORVASTATIN 40 MG TABLET 80 MG PO (12:49)
[2019-07-25] MEDS: AMLODIPINE BESYLATE 5 MG TABLET 10 MG PO (12:49)
--- NOTE | 2019-07-25 13:55 | WPDNEURORHBP ---
Subjective Date/time seen: 07/25/19 13:55 Interval history: This 74-year-old gentleman is here after having had stroke with left-sided hemiparesis also has had focal seizures in past several days he has not had any seizure his back to his usual self no psychotic episodes he denies any headache nausea vomiting chest pain shortness of breath his labs show that his creatinine has gone up and I believe he is not drinking enough Review of Systems Review of Systems: All systems reviewed & are unremarkable except as noted in HPI and below Functional Status Ambulation Ability Ability to Ambulate 10 Feet: Moderate Assistance X 1 Ambulation Assistive Devices: Cane, Sriram Transfers Ability Ability to Transfer In/Out of Chair: Maximum Assistance X 1 Exam Const: General: comfortable and no acute distress HENMT: General nose exam: Normal nares present Mouth: Yes moist mucous membranes Eyes: General: appearance normal, both eyes and all related structures Neck: Neck: supple and no JVD Resp: Effort & Inspection: normal respiratory effort Auscultation: clear to auscultation bilaterally Cardio: Rate: regular rate Rhythm: regular rhythm GI: GI Palp: Yes Soft to palpation Auscultation: normal bowel sounds Skin: General skin exam: normal color and no rashes or lesions noted Neuro: Other: patient is awake and alert and well oriented has fluent speech and normal speech and language functions left-sided hemiparesis i Extrem: General: normal to inspection Psych: Mental Status: mental status grossly normal Objective Data Vital Signs Vital Signs: Vital Signs - 24 hr 07/25/19 14:00 07/25/19 17:24 07/25/19 22:00 Temperature 37.2 C 36.9 C Pulse Rate 76 76 64 Respiratory Rate 18 18 Blood Pressure 127/66 116/51 L Pulse Oximetry 100 100 07/26/19 06:00 07/26/19 09:58 Temperature 36.8 C Pulse Rate 65 65 Respiratory Rate 18 Blood Pressure 140/66 Pulse Oximetry 97 Intake/Output Intake/Output: Intake & Output 07/23/19 07/24/19 07/25/19 07/26/19 23:59 23:59 23:59 23:59 Intake Total 840 720 720 120 Balance 840 720 720 120 Meds/Results Medications: Active Medications Generic Name Dose Route Start Last Admin Trade Name Freq PRN Reason Stop Dose Admin Acetaminophen 650 mg 07/17/19 17:06 07/25/19 21:15 Tylenol Tablet PO 650 mg Q4H PRN Administration Pain (Scale Score 1-3) Amlodipine Besylate 10 mg 07/22/19 12:00 07/26/19 12:37 Norvasc PO 10 mg NOON GREER Administration Ascorbic Acid 500 mg 07/18/19 09:00 07/26/19 09:58 Vitamin C PO 500 mg DAILY GREER Administration Aspirin 81 mg 07/18/19 09:00 07/26/19 09:58 Aspirin Chewable PO 81 mg DAILY GREER Administration Atorvastatin Calcium 80 mg 07/22/19 12:00 07/26/19 12:37 Lipitor PO 80 mg NOON GREER Administration Carvedilol 6.25 mg 07/17/19 17:20 07/26/19 09:58 Coreg PO 6.25 mg BIDWM GREER Administration Doxazosin Mesylate 4 mg 07/17/19 21:00 07/25/19 21:16 Cardura PO 4 mg HS GREER Administration Heparin Sodium (Porcine) 5,000 units 07/18/19 14:00 07/26/19 05:18 Heparin Sodium SUB-Q 5,000 units Q8HR GREER Administration Ibuprofen 800 mg 07/17/19 17:06 07/18/19 15:25 Motrin PO 800 mg TID PRN Administration Moderate Pain (Scale Score 5-6) Losartan Potassium 100 mg 07/21/19 21:00 07/25/19 20:25 Cozaar PO 100 mg HS GREER Administration Oxybutynin Chloride 5 mg 07/17/19 17:15 07/26/19 12:37 Ditropan PO 5 mg TID GREER Administration Pantoprazole Sodium 40 mg 07/18/19 09:00 07/26/19 09:59 Protonix PO 40 mg QAM GREER Administration Senna 8.6 mg 07/20/19 21:00 07/25/19 21:16 Senokot Tablet PO 8.6 mg HS GREER Administration Ticagrelor 90 mg 07/17/19 21:00 07/26/19 09:59 Brilinta PO 90 mg Q12HR GREER Administration Tramadol HCl 50 mg 07/19/19 12:57 07/25/19 21:14 Ultram PO 50 mg Q4H PRN Administration
[2019-07-25 14:00] VITALS: BP 127/66; PULSE 76; RESP 18; TEMP 37.2; O2SAT 100
[2019-07-25 17:24] VITALS: PULSE 76
[2019-07-25] MEDS: LOSARTAN POTASSIUM 100 MG TABLET PO (20:25)
[2019-07-25] MEDS: TRAMADOL HCL 50 MG TABLET PO (21:14)
[2019-07-25] MEDS: ACETAMINOPHEN 325 MG TABLET 650 MG PO (21:15)
[2019-07-25] MEDS: DOXAZOSIN MESYLATE 4 MG TABLET PO (21:16)
[2019-07-25] MEDS: SENNOSIDES 8.6 MG TABLET PO (21:16)
[2019-07-25 22:00] VITALS: BP 116/51; PULSE 64; RESP 18; TEMP 36.9; O2SAT 100
[2019-07-26] MEDS: HEPARIN SODIUM 5,000 UNITS/ML VIAL 5000 UNITS SUB-Q ×3 (05:18→21:14)
[2019-07-26 06:00] VITALS: BP 140/66; PULSE 65; RESP 18; TEMP 36.8; O2SAT 97
[2019-07-26 09:58] VITALS: PULSE 65
[2019-07-26] MEDS: ASCORBIC ACID 500 MG TABLET PO (09:58)
[2019-07-26] MEDS: ASPIRIN 81 MG CHEWABLE TABLET PO (09:58)
[2019-07-26] MEDS: carvediloL 6.25 MG TABLET PO ×2 (09:58→17:47)
[2019-07-26] MEDS: PANTOPRAZOLE 40 MG TABLET PO (09:59)
[2019-07-26] MEDS: OXYBUTYNIN CHLORIDE 5 MG TABLET PO ×3 (09:59→17:48)
[2019-07-26] MEDS: CHOLECALCIFEROL 1,000 UNIT TABLET 5000 UNITS PO (09:59)
[2019-07-26] MEDS: TICAGRELOR 90 MG TABLET PO ×2 (09:59→21:14)
[2019-07-26] MEDS: AMLODIPINE BESYLATE 5 MG TABLET 10 MG PO (12:37)
[2019-07-26] MEDS: ATORVASTATIN 40 MG TABLET 80 MG PO (12:37)
[2019-07-26 14:00] VITALS: BP 125/60; PULSE 74; RESP 18; TEMP 36.8; O2SAT 100
--- NOTE | 2019-07-26 15:43 | WPDNEURORHBP ---
Subjective Date/time seen: 07/26/19 15:43 Interval history: this 74-year-old gentleman is here after having had a right hemispheric stroke with left-sided neglect left-sided hemiparesis left-sided visual field defect is slowly improving his left shoulder is becoming spastic and he may have to consult orthopedic if the pain and difficulty continues he otherwise denies any headache nausea vomiting chest pain shortness of breath fever chills sore throat Review of Systems Review of Systems: All systems reviewed & are unremarkable except as noted in HPI and below Functional Status Ambulation Ability Ability to Ambulate 10 Feet: Moderate Assistance X 1 Ambulation Assistive Devices: Cane, Sriram Transfers Ability Ability to Transfer In/Out of Chair: Maximum Assistance X 1 Exam Const: General: comfortable and no acute distress HENMT: General nose exam: Normal nares present Mouth: Yes moist mucous membranes Eyes: General: appearance normal, both eyes and all related structures Neck: Neck: supple and no JVD Resp: Effort & Inspection: normal respiratory effort Auscultation: clear to auscultation bilaterally Cardio: Rate: regular rate Rhythm: regular rhythm GI: GI Palp: Yes Soft to palpation Auscultation: normal bowel sounds Skin: General skin exam: normal color and no rashes or lesions noted Neuro: Other: patient is awake and alert well oriented to time place and person is speech language functions are normal left-sided deficit slowly improving Extrem: General: normal to inspection Psych: Mental Status: mental status grossly normal Objective Data Vital Signs Vital Signs: Vital Signs - 24 hr 07/25/19 17:24 07/25/19 22:00 07/26/19 06:00 Temperature 36.9 C 36.8 C Pulse Rate 76 64 65 Respiratory Rate 18 18 Blood Pressure 116/51 L 140/66 Pulse Oximetry 100 97 07/26/19 09:58 07/26/19 14:00 Temperature 36.8 C Pulse Rate 65 74 Respiratory Rate 18 Blood Pressure 125/60 Pulse Oximetry 100 Intake/Output Intake/Output: Intake & Output 07/23/19 07/24/19 07/25/19 07/26/19 23:59 23:59 23:59 23:59 Intake Total 840 720 720 120 Balance 840 720 720 120 Meds/Results Medications: Active Medications Generic Name Dose Route Start Last Admin Trade Name Freq PRN Reason Stop Dose Admin Acetaminophen 650 mg 07/17/19 17:06 07/25/19 21:15 Tylenol Tablet PO 650 mg Q4H PRN Administration Pain (Scale Score 1-3) Amlodipine Besylate 10 mg 07/22/19 12:00 07/26/19 12:37 Norvasc PO 10 mg NOON GREER Administration Ascorbic Acid 500 mg 07/18/19 09:00 07/26/19 09:58 Vitamin C PO 500 mg DAILY GREER Administration Aspirin 81 mg 07/18/19 09:00 07/26/19 09:58 Aspirin Chewable PO 81 mg DAILY GREER Administration Atorvastatin Calcium 80 mg 07/22/19 12:00 07/26/19 12:37 Lipitor PO 80 mg NOON GREER Administration Carvedilol 6.25 mg 07/17/19 17:20 07/26/19 09:58 Coreg PO 6.25 mg BIDWM GREER Administration Doxazosin Mesylate 4 mg 07/17/19 21:00 07/25/19 21:16 Cardura PO 4 mg HS GREER Administration Heparin Sodium (Porcine) 5,000 units 07/18/19 14:00 07/26/19 15:43 Heparin Sodium SUB-Q 5,000 units Q8HR GREER Administration Ibuprofen 800 mg 07/17/19 17:06 07/18/19 15:25 Motrin PO 800 mg TID PRN Administration Moderate Pain (Scale Score 5-6) Losartan Potassium 100 mg 07/21/19 21:00 07/25/19 20:25 Cozaar PO 100 mg HS GREER Administration Oxybutynin Chloride 5 mg 07/17/19 17:15 07/26/19 12:37 Ditropan PO 5 mg TID GREER Administration Pantoprazole Sodium 40 mg 07/18/19 09:00 07/26/19 09:59 Protonix PO 40 mg QAM GREER Administration Senna 8.6 mg 07/20/19 21:00 07/25/19 21:16 Senokot Tablet PO 8.6 mg HS GREER Administration Ticagrelor 90 mg 07/17/19 21:00 07/26/19 09:59 Brilinta PO 90 mg Q12HR GREER Administration Tramadol HCl 50 mg 07/19/19 12:57 07/25/19 21:14 Ultram
[2019-07-26 17:47] VITALS: PULSE 74
[2019-07-26] MEDS: LOSARTAN POTASSIUM 100 MG TABLET PO (21:14)
[2019-07-26] MEDS: SENNOSIDES 8.6 MG TABLET PO (21:14)
[2019-07-26] MEDS: DOXAZOSIN MESYLATE 4 MG TABLET PO (21:14)
[2019-07-26 22:00] VITALS: BP 130/53; PULSE 79; RESP 18; TEMP 37.2; O2SAT 98
[2019-07-27 04:50] LABS: Blood Urea Nitrogen 23 mg/dL (9-20); Calcium 9.4 mg/dL (8.4-10.2); Carbon Dioxide 26 mmol/L (22-30); Chloride 106 mmol/L (98-107); Estimated CRCL calculation 25 ml/min; Estimated Glomerular Filt Rate 42; Glucose 102 mg/dL (75-110); Sodium 136 mmol/L (137-145)
[2019-07-27 06:00] VITALS: BP 147/70; PULSE 81; RESP 20; TEMP 37.3; O2SAT 100
[2019-07-27] MEDS: HEPARIN SODIUM 5,000 UNITS/ML VIAL 5000 UNITS SUB-Q ×3 (06:01→21:07)
[2019-07-27 08:14] VITALS: PULSE 81
[2019-07-27] MEDS: carvediloL 6.25 MG TABLET PO ×2 (08:14→17:13)
[2019-07-27] MEDS: ASCORBIC ACID 500 MG TABLET PO (08:15)
[2019-07-27] MEDS: PANTOPRAZOLE 40 MG TABLET PO (08:15)
[2019-07-27] MEDS: ASPIRIN 81 MG CHEWABLE TABLET PO (08:15)
[2019-07-27] MEDS: TICAGRELOR 90 MG TABLET PO ×2 (08:15→21:07)
[2019-07-27] MEDS: OXYBUTYNIN CHLORIDE 5 MG TABLET PO ×3 (08:15→17:14)
[2019-07-27] MEDS: ATORVASTATIN 40 MG TABLET 80 MG PO (12:18)
[2019-07-27] MEDS: AMLODIPINE BESYLATE 5 MG TABLET 10 MG PO (12:18)
[2019-07-27 14:00] VITALS: BP 129/71; PULSE 84; RESP 20; TEMP 36.6; O2SAT 98
[2019-07-27 17:13] VITALS: PULSE 84
[2019-07-27] MEDS: DOXAZOSIN MESYLATE 4 MG TABLET PO (21:07)
[2019-07-27] MEDS: SENNOSIDES 8.6 MG TABLET PO (21:07)
[2019-07-27] MEDS: LOSARTAN POTASSIUM 100 MG TABLET PO (21:07)
[2019-07-27 22:00] VITALS: BP 147/57; PULSE 62; RESP 16; TEMP 37.3; O2SAT 100
[2019-07-28] MEDS: HEPARIN SODIUM 5,000 UNITS/ML VIAL 5000 UNITS SUB-Q ×3 (05:46→21:07)
[2019-07-28 06:00] VITALS: BP 150/65; PULSE 73; RESP 18; TEMP 37.2; O2SAT 95
[2019-07-28 09:45] VITALS: PULSE 73
[2019-07-28] MEDS: TICAGRELOR 90 MG TABLET PO ×2 (09:45→21:07)
[2019-07-28] MEDS: ASPIRIN 81 MG CHEWABLE TABLET PO (09:45)
[2019-07-28] MEDS: ASCORBIC ACID 500 MG TABLET PO (09:45)
[2019-07-28] MEDS: PANTOPRAZOLE 40 MG TABLET PO (09:45)
[2019-07-28] MEDS: carvediloL 6.25 MG TABLET PO ×2 (09:45→17:17)
[2019-07-28] MEDS: OXYBUTYNIN CHLORIDE 5 MG TABLET PO ×3 (09:45→17:18)
--- NOTE | 2019-07-28 10:53 | WPDNEURORHBP ---
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 along with left sided [id number]/07/20 10:53 Review of Systems Review of Systems: All systems reviewed & are unremarkable except as noted in HPI and below Functional Status Ambulation Ability Ability to Ambulate 10 Feet: Moderate Assistance X 1 Ambulation Assistive Devices: Cane, Sriram Transfers Ability Ability to Transfer In/Out of Chair: Maximum Assistance X 1 Exam Const: General: cooperative, healthy appearing, comfortable and no acute distress Nutritional Appearance: average body habitus Eyes: General: appearance normal, both eyes and all related structures Visual Villafuerte: abnormal by confrontation Alignment and Position: alignment normal and position normal Periorbital: periorbital findings normal Eyelids: eyelids normal Conjunctivae: conjunctivae normal Sclera: sclerae normal Cornea: corneas normal Pupils: Equal, round and reactive pupils present EOM: EOMs intact bilaterally and EOM abnormal Direct Ophthalmoscopy: normal light reflex Neck: Neck: full ROM and no lymphadenopathy Chest: Chest palpation & inspection: normal inspection of the chest Resp: Effort & Inspection: normal respiratory effort Auscultation: clear to auscultation bilaterally Cardio: Rate: regular rate Rhythm: regular rhythm GI: Percussion: Yes normal to percussion Auscultation: normal bowel sounds Skin: General skin exam: no rashes or lesions noted Neuro: General: oriented to person, oriented to place and oriented to time Speech: normal speech Motor exam (neuro): Abnormal motor strength present (left hemiparesis) Deep tendon reflexes (DTR's): Right triceps reflex intensity grade: 1+, Left triceps reflex intensity grade: 2+, Rt Biceps (C5, C6): 1+, Left biceps reflex intensity grade: 2+, Right brachioradialis reflex intensity grade: 1+, Left brachioradialis reflex intensity grade: 2+, Right patellar reflex intensity grade: 1+, Left patellar reflex intensity grade: 2+, Right ankle reflex intensity grade: 1+ and Left ankle reflex intensity grade: 2+ Plantar Reflex Responses: downgoing: right and upgoing (positive Babinski): left Psych: Appearance: grossly normal Objective Data Vital Signs Vital Signs: Vital Signs - 24 hr 07/27/19 14:00 07/27/19 17:13 07/27/19 22:00 Temperature 36.6 C 37.3 C Pulse Rate 84 84 62 Respiratory Rate 20 16 Blood Pressure 129/71 147/57 H Pulse Oximetry 98 100 07/28/19 06:00 07/28/19 09:45 Temperature 37.2 C Pulse Rate 73 73 Respiratory Rate 18 Blood Pressure 150/65 H Pulse Oximetry 95 Intake/Output Intake/Output: Intake & Output 07/25/19 07/26/19 07/27/19 07/28/19 23:59 23:59 23:59 23:59 Intake Total 720 600 720 240 Balance 720 600 720 240 Meds/Results Medications: Active Medications Generic Name Dose Route Start Last Admin Trade Name Freq PRN Reason Stop Dose Admin Acetaminophen 650 mg 07/17/19 17:06 07/25/19 21:15 Tylenol Tablet PO 650 mg Q4H PRN Administration Pain (Scale Score 1-3) Amlodipine Besylate 10 mg 07/22/19 12:00 07/27/19 12:18 Norvasc PO 10 mg NOON GREER Administration Ascorbic Acid 500 mg 07/18/19 09:00 07/28/19 09:45 Vitamin C PO 500 mg DAILY GREER Administration Aspirin 81 mg 07/18/19 09:00 07/28/19 09:45 Aspirin Chewable PO 81 mg DAILY GREER Administration Atorvastatin Calcium 80 mg 07/22/19 12:00 07/27/19 12:18 Lipitor PO 80 mg NOON GREER Administration Carvedilol 6.25 mg 07/17/19 17:20 07/28/19 09:45 Coreg PO 6.25 mg BIDWM GREER Administration Doxazosin Mesylate 4 mg 07/17/19 21:00 07/27/19 21:07 Cardura PO 4 mg HS GREER Administration Heparin Sodium (Porcine) 5,000 units 07/18/19 14:00 07/28/19 05:46 Heparin Sodium SUB-Q 5,000 units Q8HR GREER Administration Ibuprofen 800 mg 07/17/19 17:06 07/18/19 15:25 Motrin PO 800 mg TID PRN Administration Moderate Pain (Sc
[2019-07-28] MEDS: ATORVASTATIN 40 MG TABLET 80 MG PO (12:37)
[2019-07-28] MEDS: AMLODIPINE BESYLATE 5 MG TABLET 10 MG PO (12:37)
[2019-07-28 13:30] VITALS: BP 156/73; PULSE 73; RESP 20; TEMP 37.4; O2SAT 100
[2019-07-28 14:00] VITALS: BP 158/78; PULSE 79; RESP 20; TEMP 36.8; O2SAT 98
--- NOTE | 2019-07-28 14:35 | PC.NURSE ---
Chair alarm sounding at 1330, patient found sitting on floor in front of chair.Call light is within reach. he is alert and oriented as usual. ROM done without any increase in pain level. No red, bruised or open areas. Patient stated he was trying to get straight in the chair and slid to the floor. V/S per flow sheet. Dr Bradshaw notified, Son, Harish was notified. Re-educated patient to utilize call bryson if he is going to reposition self for safety
[2019-07-28 17:17] VITALS: PULSE 73
[2019-07-28] MEDS: DOXAZOSIN MESYLATE 4 MG TABLET PO (21:07)
[2019-07-28] MEDS: SENNOSIDES 8.6 MG TABLET PO (21:07)
[2019-07-28] MEDS: LOSARTAN POTASSIUM 100 MG TABLET PO (21:07)
[2019-07-28 22:00] VITALS: BP 152/80; PULSE 68; RESP 20; TEMP 37; O2SAT 100
[2019-07-29] MEDS: HEPARIN SODIUM 5,000 UNITS/ML VIAL 5000 UNITS SUB-Q ×3 (05:47→20:58)
[2019-07-29 06:00] VITALS: BP 159/65; PULSE 66; RESP 20; TEMP 37.2; O2SAT 97
[2019-07-29 08:37] VITALS: PULSE 66
[2019-07-29] MEDS: carvediloL 6.25 MG TABLET PO ×2 (08:37→17:39)
[2019-07-29] MEDS: CHOLECALCIFEROL 1,000 UNIT TABLET 5000 UNITS PO (08:37)
[2019-07-29] MEDS: ASPIRIN 81 MG CHEWABLE TABLET PO (08:38)
[2019-07-29] MEDS: PANTOPRAZOLE 40 MG TABLET PO (08:38)
[2019-07-29] MEDS: ASCORBIC ACID 500 MG TABLET PO (08:38)
[2019-07-29] MEDS: OXYBUTYNIN CHLORIDE 5 MG TABLET PO ×3 (08:38→17:39)
[2019-07-29] MEDS: TICAGRELOR 90 MG TABLET PO ×2 (08:39→20:58)
[2019-07-29] MEDS: AMLODIPINE BESYLATE 5 MG TABLET 10 MG PO (12:42)
[2019-07-29] MEDS: ATORVASTATIN 40 MG TABLET 80 MG PO (12:42)
[2019-07-29 14:00] VITALS: BP 168/77; PULSE 76; RESP 16; TEMP 36.9; O2SAT 100
[2019-07-29 17:39] VITALS: PULSE 76
[2019-07-29] MEDS: LOSARTAN POTASSIUM 100 MG TABLET PO (20:58)
[2019-07-29] MEDS: DOXAZOSIN MESYLATE 4 MG TABLET PO (20:58)
[2019-07-29] MEDS: SENNOSIDES 8.6 MG TABLET PO (20:58)
[2019-07-29 22:00] VITALS: BP 152/67; PULSE 72; RESP 18; TEMP 37.7; O2SAT 99
[2019-07-30 05:45] VITALS: BP 123/53; PULSE 61; RESP 16; TEMP 37.3; O2SAT 100
[2019-07-30] MEDS: HEPARIN SODIUM 5,000 UNITS/ML VIAL 5000 UNITS SUB-Q ×3 (05:54→21:20)
[2019-07-30 10:03] VITALS: PULSE 61
[2019-07-30] MEDS: ASPIRIN 81 MG CHEWABLE TABLET PO (10:03)
[2019-07-30] MEDS: ASCORBIC ACID 500 MG TABLET PO (10:03)
[2019-07-30] MEDS: carvediloL 6.25 MG TABLET PO ×2 (10:03→17:20)
[2019-07-30] MEDS: TICAGRELOR 90 MG TABLET PO ×2 (10:04→21:20)
[2019-07-30] MEDS: OXYBUTYNIN CHLORIDE 5 MG TABLET PO ×3 (10:04→17:20)
[2019-07-30] MEDS: PANTOPRAZOLE 40 MG TABLET PO (10:04)
[2019-07-30] MEDS: ATORVASTATIN 40 MG TABLET 80 MG PO (12:21)
[2019-07-30] MEDS: AMLODIPINE BESYLATE 5 MG TABLET 10 MG PO (12:21)
--- NOTE | 2019-07-30 12:38 | PCDIET ---
Nutrition Follow-Up Complete: Nutrition Diagnosis: Decreased sodium needs related to cardiovascular disease as evidenced by hx CVA, HTN. Nutrition Goal: Patient to consume 75% of meals or greater. Goal not met. Average intake from 07/24/19 has been 60% of recorded meals. Patient reports getting tired of the food but is not interested in nutritional supplements. Requesting core loader salad at time of visit, however, as he is eating mashed potatoes on tray. Last recorded weight is 74.5 kg. Recommend obtaining new weight. Bowel Motility: Last documented BM on 07/27/19. Labs Reviewed: BUN (23), Cr (1.9), Na (136) Meds Noted: Vitamin C, Protonix, Senna, Vitamin D Additional Notes: No documented skin breakdown. Will follow with same goal. Nutrition Monitoring and Evaluation: Follow up every 5 days.
[2019-07-30 13:26] LABS: Thyroid Stimulating Hormone 0.415 uIU/mL (0.465-4.680)
[2019-07-30 13:41] LABS: Free T4 Free Thyroxine 1.14 ng/mL (0.78-2.19)
--- NOTE | 2019-07-30 13:56 | WPDNEURORHBP ---
Subjective Date/time seen: 07/30/19 13:56 Interval history: this 74-year-old is here after having had stroke which has left him with left-sided hemiparesis left-sided visual field defect and left-sided neglect. His progressing fairly well is main complaint is the left shoulder pain which is related to the subluxation he has from the rather severe stroke which is being kind issue taped and the also has a sling. His doing fairly well denies any headache nausea vomiting chest pain shortness of breath fever chills sore throat Review of Systems Review of Systems: All systems reviewed & are unremarkable except as noted in HPI and below Functional Status Ambulation Ability Ability to Ambulate 10 Feet: Moderate Assistance X 1 Ambulation Assistive Devices: Cane, Sriram Transfers Ability Ability to Transfer In/Out of Chair: Maximum Assistance X 1 Exam Const: General: comfortable and no acute distress HENMT: General nose exam: Normal nares present Mouth: Yes moist mucous membranes Eyes: General: appearance normal, both eyes and all related structures Neck: Neck: supple and no JVD Resp: Effort & Inspection: normal respiratory effort Auscultation: clear to auscultation bilaterally Cardio: Rate: regular rate Rhythm: regular rhythm GI: GI Palp: Yes Soft to palpation Auscultation: normal bowel sounds Skin: General skin exam: normal color and no rashes or lesions noted Neuro: Other: patient remains awake and alert well oriented with improving left-sided hemiparesis left-sided neglect Nata left-sided visual field defect Extrem: Other: the left shoulder is painful because of the subluxation documented by the x-rays performed an even otherwise is being treated with Kinesotape and wears the left side arm sling Psych: Mental Status: mental status grossly normal Objective Data Vital Signs Vital Signs: Vital Signs - 24 hr 07/29/19 14:00 07/29/19 17:39 07/29/19 22:00 Temperature 36.9 C 37.7 C H Pulse Rate 76 76 72 Respiratory Rate 16 18 Blood Pressure 168/77 H 152/67 H Pulse Oximetry 100 99 07/30/19 05:45 07/30/19 10:03 Temperature 37.3 C Pulse Rate 61 61 Respiratory Rate 16 Blood Pressure 123/53 L Pulse Oximetry 100 Intake/Output Intake/Output: Intake & Output 07/27/19 07/28/19 07/29/19 07/30/19 23:59 23:59 23:59 23:59 Intake Total 720 720 720 200 Balance 720 720 720 200 Meds/Results Medications: Active Medications Generic Name Dose Route Start Last Admin Trade Name Freq PRN Reason Stop Dose Admin Acetaminophen 650 mg 07/17/19 17:06 07/25/19 21:15 Tylenol Tablet PO 650 mg Q4H PRN Administration Pain (Scale Score 1-3) Amlodipine Besylate 10 mg 07/22/19 12:00 07/30/19 12:21 Norvasc PO 10 mg NOON GREER Administration Ascorbic Acid 500 mg 07/18/19 09:00 07/30/19 10:03 Vitamin C PO 500 mg DAILY GREER Administration Aspirin 81 mg 07/18/19 09:00 07/30/19 10:03 Aspirin Chewable PO 81 mg DAILY GREER Administration Atorvastatin Calcium 80 mg 07/22/19 12:00 07/30/19 12:21 Lipitor PO 80 mg NOON GREER Administration Carvedilol 6.25 mg 07/17/19 17:20 07/30/19 10:03 Coreg PO 6.25 mg BIDWM GREER Administration Doxazosin Mesylate 4 mg 07/17/19 21:00 07/29/19 20:58 Cardura PO 4 mg HS GREER Administration Heparin Sodium (Porcine) 5,000 units 07/18/19 14:00 07/30/19 05:54 Heparin Sodium SUB-Q 5,000 units Q8HR GREER Administration Ibuprofen 800 mg 07/17/19 17:06 07/18/19 15:25 Motrin PO 800 mg TID PRN Administration Moderate Pain (Scale Score 5-6) Losartan Potassium 100 mg 07/21/19 21:00 07/29/19 20:58 Cozaar PO 100 mg HS GREER Administration Oxybutynin Chloride 5 mg 07/17/19 17:15 07/30/19 12:21 Ditropan PO 5 mg TID GREER Administration Pantoprazole Sodium 40 mg 07/18/19 09:00 07/30/19 10:04 Protonix PO 40 mg QAM GREER Administration Senna 8.6 mg 07/20/19 21:00 07/29/19
[2019-07-30 14:00] VITALS: BP 123/62; PULSE 82; RESP 16; TEMP 37; O2SAT 100
[2019-07-30 17:20] VITALS: PULSE 82
[2019-07-30] MEDS: SENNOSIDES 8.6 MG TABLET PO (21:20)
[2019-07-30] MEDS: LOSARTAN POTASSIUM 100 MG TABLET PO (21:20)
[2019-07-30] MEDS: DOXAZOSIN MESYLATE 4 MG TABLET PO (21:20)
[2019-07-30 22:00] VITALS: BP 134/76; PULSE 82; RESP 18; TEMP 36.1; O2SAT 100
[2019-07-31] MEDS: HEPARIN SODIUM 5,000 UNITS/ML VIAL 5000 UNITS SUB-Q ×3 (05:46→21:05)
[2019-07-31 06:00] VITALS: BP 145/87; PULSE 70; RESP 18; TEMP 36.8; O2SAT 100
[2019-07-31 08:21] VITALS: PULSE 70
[2019-07-31] MEDS: carvediloL 6.25 MG TABLET PO ×2 (08:21→17:26)
[2019-07-31] MEDS: CHOLECALCIFEROL 1,000 UNIT TABLET 5000 UNITS PO (08:22)
[2019-07-31] MEDS: ASPIRIN 81 MG CHEWABLE TABLET PO (08:22)
[2019-07-31] MEDS: ASCORBIC ACID 500 MG TABLET PO (08:22)
[2019-07-31] MEDS: TICAGRELOR 90 MG TABLET PO ×2 (08:23→21:06)
[2019-07-31] MEDS: PANTOPRAZOLE 40 MG TABLET PO (08:23)
[2019-07-31] MEDS: OXYBUTYNIN CHLORIDE 5 MG TABLET PO ×3 (08:23→17:27)
[2019-07-31] MEDS: AMLODIPINE BESYLATE 5 MG TABLET 10 MG PO (11:41)
[2019-07-31] MEDS: ATORVASTATIN 40 MG TABLET 80 MG PO (11:41)
--- NOTE | 2019-07-31 12:23 | WPDNEURORHBP ---
Subjective Date/time seen: 07/31/19 12:23 Interval history: this 74-year-old gentleman is here because of stroke which has left him with the left-sided hemiparesis left-sided neglect and left-sided visual field defect is improving overall and engage in therapy is verbalizing his emotions much better and denies any headache nausea vomiting chest pain shortness of breath fever chills or sore throat Review of Systems Review of Systems: All systems reviewed & are unremarkable except as noted in HPI and below Functional Status Ambulation Ability Ability to Ambulate 10 Feet: Moderate Assistance X 1 Ambulation Assistive Devices: Cane, Sriram Transfers Ability Ability to Transfer In/Out of Chair: Maximum Assistance X 1 Exam Const: General: comfortable and no acute distress HENMT: General nose exam: Normal nares present Mouth: Yes moist mucous membranes Eyes: General: appearance normal, both eyes and all related structures Neck: Neck: supple and no JVD Resp: Effort & Inspection: normal respiratory effort Auscultation: clear to auscultation bilaterally Cardio: Rate: regular rate Rhythm: regular rhythm GI: GI Palp: Yes Soft to palpation Auscultation: normal bowel sounds Skin: General skin exam: normal color and no rashes or lesions noted Neuro: Other: patient is awake and alert well oriented and improving left-sided weakness and stable visual field defect and improving left-sided neglect Extrem: General: normal to inspection Psych: Mental Status: mental status grossly normal Objective Data Vital Signs Vital Signs: Vital Signs - 24 hr 07/30/19 14:00 07/30/19 17:20 07/30/19 22:00 Temperature 37.0 C 36.1 C L Pulse Rate 82 82 82 Respiratory Rate 16 18 Blood Pressure 123/62 134/76 Pulse Oximetry 100 100 07/31/19 06:00 07/31/19 08:21 Temperature 36.8 C Pulse Rate 70 70 Respiratory Rate 18 Blood Pressure 145/87 H Pulse Oximetry 100 Intake/Output Intake/Output: Intake & Output 07/28/19 07/29/19 07/30/19 07/31/19 23:59 23:59 23:59 23:59 Intake Total 720 720 400 240 Balance 720 720 400 240 Meds/Results Medications: Active Medications Generic Name Dose Route Start Last Admin Trade Name Freq PRN Reason Stop Dose Admin Acetaminophen 650 mg 07/17/19 17:06 07/25/19 21:15 Tylenol Tablet PO 650 mg Q4H PRN Administration Pain (Scale Score 1-3) Amlodipine Besylate 10 mg 07/22/19 12:00 07/31/19 11:41 Norvasc PO 10 mg NOON GREER Administration Ascorbic Acid 500 mg 07/18/19 09:00 07/31/19 08:22 Vitamin C PO 500 mg DAILY GREER Administration Aspirin 81 mg 07/18/19 09:00 07/31/19 08:22 Aspirin Chewable PO 81 mg DAILY GREER Administration Atorvastatin Calcium 80 mg 07/22/19 12:00 07/31/19 11:41 Lipitor PO 80 mg NOON GREER Administration Carvedilol 6.25 mg 07/17/19 17:20 07/31/19 08:21 Coreg PO 6.25 mg BIDWM GREER Administration Doxazosin Mesylate 4 mg 07/17/19 21:00 07/30/19 21:20 Cardura PO 4 mg HS GREER Administration Heparin Sodium (Porcine) 5,000 units 07/18/19 14:00 07/31/19 05:46 Heparin Sodium SUB-Q 5,000 units Q8HR GREER Administration Ibuprofen 800 mg 07/17/19 17:06 07/18/19 15:25 Motrin PO 800 mg TID PRN Administration Moderate Pain (Scale Score 5-6) Losartan Potassium 100 mg 07/21/19 21:00 07/30/19 21:20 Cozaar PO 100 mg HS GREER Administration Oxybutynin Chloride 5 mg 07/17/19 17:15 07/31/19 11:42 Ditropan PO 5 mg TID GREER Administration Pantoprazole Sodium 40 mg 07/18/19 09:00 07/31/19 08:23 Protonix PO 40 mg QAM GREER Administration Senna 8.6 mg 07/20/19 21:00 07/30/19 21:20 Senokot Tablet PO 8.6 mg HS GREER Administration Ticagrelor 90 mg 07/17/19 21:00 07/31/19 08:23 Brilinta PO 90 mg Q12HR GREER Administration Tramadol HCl 50 mg 07/19/19 12:57 07/25/19 21:14 Ultram PO 50 mg Q4H PRN Administration Pain Rated 4
[2019-07-31 14:00] VITALS: BP 146/51; PULSE 74; RESP 20; TEMP 37.2; O2SAT 100
[2019-07-31 17:26] VITALS: PULSE 74
[2019-07-31] MEDS: SENNOSIDES 8.6 MG TABLET PO (21:06)
[2019-07-31] MEDS: LOSARTAN POTASSIUM 100 MG TABLET PO (21:06)
[2019-07-31] MEDS: DOXAZOSIN MESYLATE 4 MG TABLET PO (21:06)
[2019-07-31 22:00] VITALS: BP 150/71; PULSE 77; RESP 18; TEMP 35.7; O2SAT 100
[2019-08-01 04:40] LABS: Basophils Absolute Auto 0.1 K/mm3 (0.0-0.1); Basophils Percent Auto 0.9 % (0.2-1.2); Eosinophils Absolute Auto 0.3 K/mm3 (0-0.3); Eosinophils Percent Auto 6.1 % (0-4.4); Hematocrit 31.7 % (42.0-52.0); Hemoglobin 10.5 g/dL (14.0-18.0); Immature Granulocyte Absolute 0.01 K/mm3 (0.00-0.031); Immature Granulocyte Percent A 0.2 % (0-0.5); Lymphocytes Absolute Auto 1.41 K/mm3 (0.9-3.2); Mean Corpuscular HGB Conc 33.1 g/dl (32-36); Mean Corpuscular Hemoglobin 30.3 pg (26-34); Mean Corpuscular Volume 91.4 fl (80-100); Monocytes Absolute Auto 0.5 K/mm3 (0.1-0.6); Monocytes Percent Auto 9.8 % (2.6-8.5); Neutrophils Absolute Auto 3.1 K/mm3 (1.3-6.7); Platelet Count Result 263 k/mm3 (150-375); Red Blood Count 3.47 M/mm3 (4.6-6.20); Red Cell Distribution Width 15.5 % (11.5-14.5); White Blood Count 5.4 K/mm3 (4.5-10.0)
[2019-08-01 05:19] LABS: Blood Urea Nitrogen 34 mg/dL (9-20); Calcium 9.7 mg/dL (8.4-10.2); Carbon Dioxide 25 mmol/L (22-30); Chloride 106 mmol/L (98-107); Estimated CRCL calculation 25 ml/min; Estimated Glomerular Filt Rate 42; Glucose 103 mg/dL (75-110); Potassium 3.9 mmol/L (3.4-5.0); Sodium 136 mmol/L (137-145)
[2019-08-01] MEDS: HEPARIN SODIUM 5,000 UNITS/ML VIAL 5000 UNITS SUB-Q ×3 (05:26→21:01)
[2019-08-01 06:00] VITALS: BP 168/73; PULSE 80; RESP 18; TEMP 36.3; O2SAT 100
[2019-08-01 08:57] VITALS: PULSE 66
[2019-08-01] MEDS: carvediloL 6.25 MG TABLET PO ×2 (08:57→17:44)
[2019-08-01] MEDS: ASPIRIN 81 MG CHEWABLE TABLET PO (08:58)
[2019-08-01] MEDS: OXYBUTYNIN CHLORIDE 5 MG TABLET PO ×3 (08:58→17:46)
[2019-08-01] MEDS: PANTOPRAZOLE 40 MG TABLET PO (08:58)
[2019-08-01] MEDS: TICAGRELOR 90 MG TABLET PO ×2 (08:58→21:03)
[2019-08-01] MEDS: ASCORBIC ACID 500 MG TABLET PO (08:58)
[2019-08-01] MEDS: ATORVASTATIN 40 MG TABLET 80 MG PO (12:34)
[2019-08-01] MEDS: AMLODIPINE BESYLATE 5 MG TABLET 10 MG PO (12:35)
[2019-08-01 14:00] VITALS: BP 155/80; PULSE 101; RESP 18; TEMP 37.3; O2SAT 98
[2019-08-01 17:44] VITALS: PULSE 74
[2019-08-01] MEDS: SENNOSIDES 8.6 MG TABLET PO (21:03)
[2019-08-01] MEDS: LOSARTAN POTASSIUM 100 MG TABLET PO (21:03)
[2019-08-01] MEDS: DOXAZOSIN MESYLATE 4 MG TABLET PO (21:03)
[2019-08-01 21:56] LABS: Triiodothyronine T3 Free 2.9 pg/mL (2.3-4.2)
[2019-08-01 22:00] VITALS: BP 144/70; PULSE 77; RESP 18; TEMP 37.6; O2SAT 99
[2019-08-02] MEDS: HEPARIN SODIUM 5,000 UNITS/ML VIAL 5000 UNITS SUB-Q (05:55)
[2019-08-02 06:00] VITALS: BP 130/81; PULSE 69; RESP 18; TEMP 37.3; O2SAT 100
[2019-08-02 08:00] VITALS: PULSE 72; RESP 18; O2SAT 100; O2SAT 50
[2019-08-02 08:59] VITALS: PULSE 72
[2019-08-02] MEDS: carvediloL 6.25 MG TABLET PO ×2 (08:59→17:28)
[2019-08-02] MEDS: ASCORBIC ACID 500 MG TABLET PO (08:59)
[2019-08-02] MEDS: ASPIRIN 81 MG CHEWABLE TABLET PO (08:59)
[2019-08-02] MEDS: PANTOPRAZOLE 40 MG TABLET PO (09:00)
[2019-08-02] MEDS: OXYBUTYNIN CHLORIDE 5 MG TABLET PO ×3 (09:00→17:28)
[2019-08-02] MEDS: TICAGRELOR 90 MG TABLET PO ×2 (09:00→20:15)
[2019-08-02] MEDS: CHOLECALCIFEROL 1,000 UNIT TABLET 5000 UNITS PO (09:00)
--- NOTE | 2019-08-02 12:24 | WPDNEURORHBP ---
Subjective Date/time seen: 08/02/19 12:24 Interval history: this 74-year-old gentleman is here with stroke and left-sided hemiparesis he is ambulating better however is complaining of some bleeding at the site where he is getting the heparin we will watch it he also has rising creatinine I suspect is probably underlying hypertensive diabetic chronic renal disease I will check his BMP again tomorrow and watch the bleeding and I may have to discontinue the heparin shots at this moment He denies any headache nausea vomiting chest pain shortness breath fever chills sore throat Review of Systems Review of Systems: All systems reviewed & are unremarkable except as noted in HPI and below Functional Status Ambulation Ability Ability to Ambulate 10 Feet: Contact Guard Ability to Ambulate 50 Feet With 2 Turns: Contact Guard Ambulation Assistive Devices: Cane, Sriram Transfers Ability Ability to Transfer In/Out of Chair: Maximum Assistance X 1 Exam Const: General: comfortable and no acute distress HENMT: General nose exam: Normal nares present Mouth: Yes moist mucous membranes Eyes: General: appearance normal, both eyes and all related structures Neck: Neck: supple and no JVD Resp: Effort & Inspection: normal respiratory effort Auscultation: clear to auscultation bilaterally Cardio: Rate: regular rate Rhythm: regular rhythm GI: GI Palp: Yes Soft to palpation Auscultation: normal bowel sounds Skin: General skin exam: normal color and no rashes or lesions noted Other: the site of subcu heparin on the left side of the abdomen still has some oozing however there is no hematoma and there is no swelling and is nontender Neuro: Other: improving left-sided hemiparesis Extrem: General: normal to inspection Psych: Mental Status: mental status grossly normal Objective Data Vital Signs Vital Signs: Vital Signs - 24 hr 08/01/19 14:00 08/01/19 17:44 08/01/19 22:00 Temperature 37.3 C 37.6 C Pulse Rate 101 H 74 77 Respiratory Rate 18 18 Blood Pressure 155/80 H 144/70 H Pulse Oximetry 98 99 08/02/19 06:00 08/02/19 08:00 08/02/19 08:59 Temperature 37.3 C Pulse Rate 69 72 72 Respiratory Rate 18 18 Blood Pressure 130/81 Pulse Oximetry 100 100 Intake/Output Intake/Output: Intake & Output 06/09/20 07/31/19 08/01/19 08/02/19 23:59 23:59 23:59 23:59 Intake Total 400 720 600 360 Balance 400 720 600 360 Meds/Results Medications: Active Medications Generic Name Dose Route Start Last Admin Trade Name Freq PRN Reason Stop Dose Admin Acetaminophen 650 mg 07/17/19 17:06 07/25/19 21:15 Tylenol Tablet PO 650 mg Q4H PRN Administration Pain (Scale Score 1-3) Amlodipine Besylate 10 mg 07/22/19 12:00 08/01/19 12:35 Norvasc PO 10 mg NOON GREER Administration Ascorbic Acid 500 mg 07/18/19 09:00 08/02/19 08:59 Vitamin C PO 500 mg DAILY GREER Administration Aspirin 81 mg 07/18/19 09:00 08/02/19 08:59 Aspirin Chewable PO 81 mg DAILY GREER Administration Atorvastatin Calcium 80 mg 07/22/19 12:00 08/01/19 12:34 Lipitor PO 80 mg NOON GREER Administration Carvedilol 6.25 mg 07/17/19 17:20 08/02/19 08:59 Coreg PO 6.25 mg BIDWM GREER Administration Doxazosin Mesylate 4 mg 07/17/19 21:00 08/01/19 21:03 Cardura PO 4 mg HS GREER Administration Heparin Sodium (Porcine) 5,000 units 07/18/19 14:00 08/02/19 05:55 Heparin Sodium SUB-Q 5,000 units Q8HR GREER Administration Ibuprofen 800 mg 07/17/19 17:06 07/18/19 15:25 Motrin PO 800 mg TID PRN Administration Moderate Pain (Scale Score 5-6) Losartan Potassium 100 mg 07/21/19 21:00 08/01/19 21:03 Cozaar PO 100 mg HS GREER Administration Oxybutynin Chloride 5 mg 07/17/19 17:15 08/02/19 09:00 Ditropan PO 5 mg TID GREER Administration Pantoprazole Sodium 40 mg 07/18/19 09:00 08/02/19 09:00 Protonix PO 40 mg QAM GREER Administration Senna 8.6 mg 0
[2019-08-02] MEDS: AMLODIPINE BESYLATE 5 MG TABLET 10 MG PO (12:38)
[2019-08-02] MEDS: ATORVASTATIN 40 MG TABLET 80 MG PO (12:38)
[2019-08-02 14:00] VITALS: BP 148/76; PULSE 104; RESP 18; TEMP 36.6; O2SAT 97
--- NOTE | 2019-08-02 14:37 | PC.NURSE ---
Patient had bleeding and needed bandaids from dose of Sub Q heparin administered this a.m. at 0600 and is hesitant about taking the heparin dose this afternoon. Per Dr. Trejo hold heparin dose today at 1400 and at 2200 tonight. will follow up in a.m..
[2019-08-02 17:28] VITALS: PULSE 98
[2019-08-02] MEDS: SENNOSIDES 8.6 MG TABLET PO (20:15)
[2019-08-02] MEDS: DOXAZOSIN MESYLATE 4 MG TABLET PO (20:15)
[2019-08-02] MEDS: LOSARTAN POTASSIUM 100 MG TABLET PO (20:16)
[2019-08-02 22:00] VITALS: BP 135/64; PULSE 69; RESP 18; TEMP 37; O2SAT 97
[2019-08-03] MEDS: HEPARIN SODIUM 5,000 UNITS/ML VIAL 5000 UNITS SUB-Q ×2 (05:39→14:35)
[2019-08-03 05:54] LABS: Blood Urea Nitrogen 36 mg/dL (9-20); Calcium 9.2 mg/dL (8.4-10.2); Carbon Dioxide 24 mmol/L (22-30); Chloride 107 mmol/L (98-107); Estimated CRCL calculation 24 ml/min; Estimated Glomerular Filt Rate 40; Glucose 95 mg/dL (75-110); Potassium 3.9 mmol/L (3.4-5.0); Sodium 136 mmol/L (137-145)
[2019-08-03 06:00] VITALS: BP 138/67; PULSE 70; RESP 18; TEMP 37.2; O2SAT 96
[2019-08-03 09:38] VITALS: PULSE 70
[2019-08-03] MEDS: carvediloL 6.25 MG TABLET PO ×2 (09:38→17:38)
[2019-08-03] MEDS: ASPIRIN 81 MG CHEWABLE TABLET PO (09:38)
[2019-08-03] MEDS: PANTOPRAZOLE 40 MG TABLET PO (09:38)
[2019-08-03] MEDS: OXYBUTYNIN CHLORIDE 5 MG TABLET PO ×3 (09:38→17:39)
[2019-08-03] MEDS: ASCORBIC ACID 500 MG TABLET PO (09:38)
[2019-08-03] MEDS: TICAGRELOR 90 MG TABLET PO ×2 (09:39→20:58)
[2019-08-03] MEDS: ATORVASTATIN 40 MG TABLET 80 MG PO (12:49)
[2019-08-03] MEDS: AMLODIPINE BESYLATE 5 MG TABLET 10 MG PO (12:49)
[2019-08-03 14:00] VITALS: BP 140/62; PULSE 71; RESP 20; TEMP 36.9; O2SAT 98
--- NOTE | 2019-08-03 16:28 | WPDNEURORHBP ---
Subjective Date/time seen: 08/03/19 16:28 Interval history: this is a 74-year-old gentleman who is here after having had a right hemispheric stroke with left hemiparesis left neglect the left visual field defect he is hypertensive and diabetic and his creatinine has been rising in the previous several days which is in my opinion Sineff Flick reflection of the chronic kidney disease however I need help from the bank secrecy act officer number consult them it could also be a drug effect which he is on in any event his main issue is the left shoulder which is subluxed and being taped is on pain medication and once he takes the medication he feels more comfortable Denies any headache nausea vomiting chest pain shortness of breath fever chills sore throat Review of Systems Review of Systems: All systems reviewed & are unremarkable except as noted in HPI and below Functional Status Ambulation Ability Ability to Ambulate 10 Feet: Minimum Assistance X 1 Ability to Ambulate 50 Feet With 2 Turns: Contact Guard Ambulation Assistive Devices: Cane, Sriram Transfers Ability Ability to Transfer In/Out of Chair: Maximum Assistance X 1 Exam Const: General: comfortable and no acute distress HENMT: General nose exam: Normal nares present Mouth: Yes moist mucous membranes Eyes: General: appearance normal, both eyes and all related structures Neck: Neck: supple and no JVD Resp: Effort & Inspection: normal respiratory effort Auscultation: clear to auscultation bilaterally Cardio: Rate: regular rate Rhythm: regular rhythm GI: GI Palp: Yes Soft to palpation Auscultation: normal bowel sounds Skin: General skin exam: normal color and no rashes or lesions noted Neuro: Other: patient is awake and alert well oriented his deficit on the left side is improving is not any distress with limitation of the shoulder movement of the left side which is the paralyzed side are clearly limited and painful with subluxation documented on the x-rays along with the arthritis Extrem: Other: slightly subluxed the left shoulder along with the decrease shoulder movement Psych: Mental Status: mental status grossly normal Objective Data Vital Signs Vital Signs: Vital Signs - 24 hr 08/02/19 17:28 08/02/19 22:00 08/03/19 06:00 Temperature 37.0 C 37.2 C Pulse Rate 98 69 70 Respiratory Rate 18 18 Blood Pressure 135/64 138/67 Pulse Oximetry 97 96 08/03/19 09:38 08/03/19 14:00 Temperature 36.9 C Pulse Rate 70 71 Respiratory Rate 20 Blood Pressure 140/62 Pulse Oximetry 98 Intake/Output Intake/Output: Intake & Output 07/31/19 08/01/19 08/02/19 08/03/19 23:59 23:59 23:59 23:59 Intake Total 720 600 840 480 Balance 720 600 840 480 Meds/Results Medications: Active Medications Generic Name Dose Route Start Last Admin Trade Name Freq PRN Reason Stop Dose Admin Acetaminophen 650 mg 07/17/19 17:06 07/25/19 21:15 Tylenol Tablet PO 650 mg Q4H PRN Administration Pain (Scale Score 1-3) Amlodipine Besylate 10 mg 07/22/19 12:00 08/03/19 12:49 Norvasc PO 10 mg NOON GREER Administration Ascorbic Acid 500 mg 07/18/19 09:00 08/03/19 09:38 Vitamin C PO 500 mg DAILY GREER Administration Aspirin 81 mg 07/18/19 09:00 08/03/19 09:38 Aspirin Chewable PO 81 mg DAILY GREER Administration Atorvastatin Calcium 80 mg 07/22/19 12:00 08/03/19 12:49 Lipitor PO 80 mg NOON GREER Administration Carvedilol 6.25 mg 07/17/19 17:20 08/03/19 09:38 Coreg PO 6.25 mg BIDWM GREER Administration Doxazosin Mesylate 4 mg 07/17/19 21:00 08/02/19 20:15 Cardura PO 4 mg HS GREER Administration Heparin Sodium (Porcine) 5,000 units 08/04/19 09:00 Heparin Sodium SUB-Q Q12HR [facility] Ibuprofen 800 mg 07/17/19 17:06 07/18/19 15:25 Motrin PO 800 mg TID PRN Administration Moderate Pain (Scale Score 5-6) Losartan Potassium 100 mg 07/21/19 21:00 08/02/19 20:16 Cozaar PO 100 mg HS [facility]
[2019-08-03 17:38] VITALS: PULSE 71
[2019-08-03] MEDS: SENNOSIDES 8.6 MG TABLET PO (20:58)
[2019-08-03] MEDS: DOXAZOSIN MESYLATE 4 MG TABLET PO (20:58)
[2019-08-03] MEDS: LOSARTAN POTASSIUM 100 MG TABLET PO (20:58)
[2019-08-03 22:00] VITALS: BP 143/96; PULSE 74; RESP 17; TEMP 37.4; O2SAT 100
[2019-08-04 06:00] VITALS: BP 131/71; PULSE 84; RESP 17; TEMP 37.2; O2SAT 98
[2019-08-04] MEDS: HEPARIN SODIUM 5,000 UNITS/ML VIAL 5000 UNITS SUB-Q ×2 (06:30→20:50)
--- NOTE | 2019-08-04 07:26 | PC.NURSE ---
Dr Clark electrical electronics technician notified of consult.
[2019-08-04 08:56] VITALS: PULSE 84
[2019-08-04] MEDS: carvediloL 6.25 MG TABLET PO ×2 (08:56→18:32)
[2019-08-04] MEDS: ASCORBIC ACID 500 MG TABLET PO (08:56)
[2019-08-04] MEDS: OXYBUTYNIN CHLORIDE 5 MG TABLET PO ×3 (08:57→18:32)
[2019-08-04] MEDS: TICAGRELOR 90 MG TABLET PO ×2 (08:57→20:50)
[2019-08-04] MEDS: ASPIRIN 81 MG CHEWABLE TABLET PO (08:57)
[2019-08-04] MEDS: PANTOPRAZOLE 40 MG TABLET PO (08:57)
[2019-08-04 12:00] LABS: Creatinine Urine 116.7 mg/dL; Total Protein Urine Random 35 mg/dL
[2019-08-04 12:03] LABS: Sodium Urine Random 65 meq/L
[2019-08-04] MEDS: AMLODIPINE BESYLATE 5 MG TABLET 10 MG PO (12:42)
[2019-08-04] MEDS: ATORVASTATIN 40 MG TABLET 80 MG PO (12:42)
[2019-08-04 14:00] VITALS: BP 143/71; PULSE 71; RESP 20; TEMP 37.1; O2SAT 99
--- NOTE | 2019-08-04 14:34 | PM.CNNEP ---
Assessment and Plan Assessment and plan (1) RENETTA (acute kidney injury): Code(s): N17.9 - Acute kidney failure, unspecified Status: Acute (2) Stroke: Code(s): I63.9 - Cerebral infarction, unspecified Status: Acute (3) Hypertension: Code(s): I10 - Essential (primary) hypertension Status: Acute (4) Left hemiplegia: Code(s): G81.94 - Hemiplegia, unspecified affecting left nondominant side Status: Acute Assessment and Plan: . Additional Plan Hi has acute kidney injury/acute renal failure as evidenced by the trend of his labs in the last few days. Workup and evaluation today demonstrates urine electrolytes that are somewhat consistent with prerenal azotemia and a renal ultrasound that demonstrates normal anatomy without evidence of hydronephrosis. These findings would suggest that he probably has some degree of volume depletion/dehydration which may have been worsened by his continued use of losartan and p.r.n. nonsteroidal anti-inflammatory drugs. I discussed these findings with the patient and try to encourage him to drink more water in effort to try to get his kidney function back to baseline. I did inform him that if his oral intake does not improve the nurses will be forced to place an IV for IV fluids to ensure adequate fluid resuscitation which she appeared to voice understanding to. I will repeat labs tomorrow to see the trend of his kidney function with his attempted oral hydration and if it fails to improve we may have to consider IV fluids. I will hold his NSAIDs in losartan for now until his renal function returns back to baseline. If his kidney function fails to improve with these conservative therapy, then all proceed with further serological evaluation/testing to ascertain if there is some other underlying condition present it may explain his rising creatinine. I will continue follow the patient with you while remains hospitalized and make further recommendations during his hospital course Thank you for allowing me to participate in the care this patient. History of Present Illness Reason for Consult Consult date: 08/04/19 Reason for consult: acute renal failure Chief Complaint Chief complaint: cva History of Present Illness Narrative: The patient is a 74-year-old male with a past medical history as outlined below who was transferred to [facility] for further PT/OT/rehab follwoing his hospitalization at [facility] for an acute CVA. The patient initially presented to [facility] with left-sided hemiparesis, facial droop, left-sided neglect and right gaze preference. Given the time frame of events that occurred he was deemed a candidate for tPA which was administered followed by subsequent transferred to [facility] for possible thrombectomy evaluation. He subsequently underwent angiography at [facility] which was significant for right cervical internal carotid stenosis with subsequent intervention including stent placement. His postprocedure course was complicated by respiratory failure and the necessity of mechanical ventilation as well as a nicardipine drip for significant hypertension. Eventually his overall medical condition improved with subsequent weaning off of the nicardipine drip as well as extubation and given the a for mentioned acute CVA, was recommended that he attend rehab. Since his admission here to the [facility], routine blood tests have demonstrated in the slow and incremental decline in his renal function. On admission, his creatinine was 1.3 and subsequently labs this morning shows creatinine up to 2.0. Renal consultation was requested due to the aforementioned acute kidney injury/acute renal failure. From my discussion with the patient, he freely admits that he is not a big water drinker and has not been doing so since his admission here to the [facility] well. I discussed the case with his nurse who also confirmed that he has not been eatin
--- NOTE | 2019-08-04 17:48 | WPDNEURORHBP ---
Subjective Date/time seen: 08/04/19 17:48 Interval history: this 74-year-old gentleman is here because of having had stroke with moderately severe left-sided hemiparesis he is a diabetic and hypertensive as been seen by the supervisor carbon paper coating to have held his anti inflammatory and also losartan in a back graft of having increased BUN and creatinine the patient denies any problem however is agreeable for taking significant oral intake rather than having the IV fluids the supervisor carbon paper coating notes were reviewed and agreed Review of Systems Review of Systems: All systems reviewed & are unremarkable except as noted in HPI and below Functional Status Ambulation Ability Ability to Ambulate 10 Feet: Minimum Assistance X 1 Ability to Ambulate 50 Feet With 2 Turns: Contact Guard Ambulation Assistive Devices: Cane, Sriram Transfers Ability Ability to Transfer In/Out of Chair: Maximum Assistance X 1 Exam Const: General: comfortable and no acute distress HENMT: General nose exam: Normal nares present Mouth: Yes moist mucous membranes Eyes: General: appearance normal, both eyes and all related structures Neck: Neck: supple and no JVD Resp: Effort & Inspection: normal respiratory effort Auscultation: clear to auscultation bilaterally Cardio: Rate: regular rate Rhythm: regular rhythm GI: GI Palp: Yes Soft to palpation Auscultation: normal bowel sounds Skin: General skin exam: normal color and no rashes or lesions noted Neuro: Other: patient remains awake alert will oriented in time place and person with normal speech and language function and improving left-sided hemiparesis Extrem: General: normal to inspection Psych: Mental Status: mental status grossly normal Objective Data Vital Signs Vital Signs: Vital Signs - 24 hr 08/03/19 22:00 08/04/19 06:00 08/04/19 08:56 Temperature 37.4 C 37.2 C Pulse Rate 74 84 84 Respiratory Rate 17 17 Blood Pressure 143/96 H 131/71 Pulse Oximetry 100 98 08/04/19 14:00 Temperature 37.1 C Pulse Rate 71 Respiratory Rate 20 Blood Pressure 143/71 H Pulse Oximetry 99 Intake/Output Intake/Output: Intake & Output 08/01/19 08/02/19 08/03/19 08/04/19 23:59 23:59 23:59 23:59 Intake Total 600 840 720 480 Balance 600 840 720 480 Meds/Results Medications: Active Medications Generic Name Dose Route Start Last Admin Trade Name Freq PRN Reason Stop Dose Admin Acetaminophen 650 mg 07/17/19 17:06 07/25/19 21:15 Tylenol Tablet PO 650 mg Q4H PRN Administration Pain (Scale Score 1-3) Amlodipine Besylate 10 mg 07/22/19 12:00 08/04/19 12:42 Norvasc PO 10 mg NOON GREER Administration Ascorbic Acid 500 mg 07/18/19 09:00 08/04/19 08:56 Vitamin C PO 500 mg DAILY GREER Administration Aspirin 81 mg 07/18/19 09:00 08/04/19 08:57 Aspirin Chewable PO 81 mg DAILY GREER Administration Atorvastatin Calcium 80 mg 07/22/19 12:00 08/04/19 12:42 Lipitor PO 80 mg NOON GREER Administration Carvedilol 6.25 mg 07/17/19 17:20 08/04/19 08:56 Coreg PO 6.25 mg BIDWM GREER Administration Doxazosin Mesylate 4 mg 07/17/19 21:00 08/03/19 20:58 Cardura PO 4 mg HS GREER Administration Heparin Sodium (Porcine) 5,000 units 08/04/19 09:00 08/04/19 06:30 Heparin Sodium SUB-Q 5,000 units Q12HR GREER Administration Ibuprofen 800 mg 07/17/19 17:06 07/18/19 15:25 Motrin PO 800 mg TID PRN Administration Moderate Pain (Scale Score 5-6) Losartan Potassium 100 mg 07/21/19 21:00 08/03/19 20:58 Cozaar PO 100 mg HS GREER Administration Oxybutynin Chloride 5 mg 07/17/19 17:15 08/04/19 12:42 Ditropan PO 5 mg TID GREER Administration Pantoprazole Sodium 40 mg 07/18/19 09:00 08/04/19 08:57 Protonix PO 40 mg QAM GREER Administration Senna 8.6 mg 07/20/19 21:00 08/03/19 20:58 Senokot Tablet PO 8.6 mg HS GREER Administration Ticagrelor 90 mg 07/17/19 21:00 08/04/19 08:57 Brilinta PO 90
[2019-08-04 18:32] VITALS: PULSE 71
[2019-08-04] MEDS: DOXAZOSIN MESYLATE 4 MG TABLET PO (20:50)
[2019-08-04] MEDS: SENNOSIDES 8.6 MG TABLET PO (20:50)
[2019-08-04 21:34] VITALS: BP 149/58; PULSE 89; RESP 18; TEMP 38.2; O2SAT 100
[2019-08-05 05:53] LABS: Blood Urea Nitrogen 31 mg/dL (9-20); Calcium 9.2 mg/dL (8.4-10.2); Carbon Dioxide 25 mmol/L (22-30); Chloride 107 mmol/L (98-107); Estimated CRCL calculation 23 ml/min; Estimated Glomerular Filt Rate 37; Glucose 107 mg/dL (75-110); Potassium 3.8 mmol/L (3.4-5.0); Sodium 137 mmol/L (137-145)
[2019-08-05 06:00] VITALS: BP 154/76; PULSE 76; RESP 18; TEMP 37.3; O2SAT 100
--- NOTE | 2019-08-05 10:36 | WPDNEURORHBP ---
Subjective Date/time seen: 08/05/19 10:36 right hemispheric stroke with risk factors of DM ,hypertension with mild renal disease as well involved in therapy and showing signs of improvement Review of Systems Review of Systems: All systems reviewed & are unremarkable except as noted in HPI and below Functional Status Ambulation Ability Ability to Ambulate 10 Feet: Minimum Assistance X 1 Ability to Ambulate 50 Feet With 2 Turns: Contact Guard Ambulation Assistive Devices: Cane, Sriram Transfers Ability Ability to Transfer In/Out of Chair: Maximum Assistance X 1 Exam Const: General: cooperative, comfortable and no acute distress HENMT: General nose exam: Normal external nose present and No nasal discharge present Face and sinus: normal facial exam Mouth: Yes Normal oral and palatal mucosa present Eyes: General: appearance normal, both eyes and all related structures Neck: Neck: full ROM Resp: Effort & Inspection: normal respiratory effort Auscultation: clear to auscultation bilaterally Cardio: Rate: regular rate Rhythm: regular rhythm GI: Percussion: Yes normal to percussion Auscultation: normal bowel sounds Skin: General skin exam: no rashes or lesions noted Neuro: General: patient oriented x3 and moves all extremities Cranial nerves: Yes Equal, round and reactive pupils present, Yes Nystagmus not present, Yes Midline tongue present, Yes Ability to bilaterally rotate head present and Yes Ability to bilaterally elevate shoulders present Cognition (Neuro): normal cognition Motor exam (neuro): Abnormal motor strength present (left hemiparesis) Extrem: General: normal to inspection Psych: Appearance: grossly normal Objective Data Vital Signs Vital Signs: Vital Signs - 24 hr 08/04/19 14:00 08/04/19 18:32 08/04/19 21:34 Temperature 37.1 C 38.2 C H Pulse Rate 71 71 89 Respiratory Rate 20 18 Blood Pressure 143/71 H 149/58 H Pulse Oximetry 99 100 08/05/19 06:00 Temperature 37.3 C Pulse Rate 76 Respiratory Rate 18 Blood Pressure 154/76 H Pulse Oximetry 100 Intake/Output Intake/Output: Intake & Output 08/02/19 08/03/19 08/04/19 08/05/19 23:59 23:59 23:59 23:59 Intake Total 840 720 480 480 Balance 840 720 480 480 Meds/Results Medications: Active Medications Generic Name Dose Route Start Last Admin Trade Name Freq PRN Reason Stop Dose Admin Acetaminophen 650 mg 07/17/19 17:06 07/25/19 21:15 Tylenol Tablet PO 650 mg Q4H PRN Administration Pain (Scale Score 1-3) Amlodipine Besylate 10 mg 07/22/19 12:00 08/04/19 12:42 Norvasc PO 10 mg NOON GREER Administration Ascorbic Acid 500 mg 07/18/19 09:00 08/04/19 08:56 Vitamin C PO 500 mg DAILY GREER Administration Aspirin 81 mg 07/18/19 09:00 08/04/19 08:57 Aspirin Chewable PO 81 mg DAILY GREER Administration Atorvastatin Calcium 80 mg 07/22/19 12:00 08/04/19 12:42 Lipitor PO 80 mg NOON GREER Administration Carvedilol 6.25 mg 07/17/19 17:20 08/04/19 18:32 Coreg PO 6.25 mg BIDWM GREER Administration Doxazosin Mesylate 4 mg 07/17/19 21:00 08/04/19 20:50 Cardura PO 4 mg HS GREER Administration Heparin Sodium (Porcine) 5,000 units 08/04/19 09:00 08/04/19 20:50 Heparin Sodium SUB-Q 5,000 units Q12HR GREER Administration Ibuprofen 800 mg 07/17/19 17:06 07/18/19 15:25 Motrin PO 800 mg TID PRN Administration Moderate Pain (Scale Score 5-6) Losartan Potassium 100 mg 07/21/19 21:00 08/03/19 20:58 Cozaar PO 100 mg HS GREER Administration Oxybutynin Chloride 5 mg 07/17/19 17:15 08/04/19 18:32 Ditropan PO 5 mg TID GREER Administration Pantoprazole Sodium 40 mg 07/18/19 09:00 08/04/19 08:57 Protonix PO 40 mg QAM GREER Administration Senna 8.6 mg 07/20/19 21:00 08/04/19 20:50 Senokot Tablet PO 8.6 mg HS GREER Administration Ticagrelor 90 mg 07/17/19 21:00 08/04/19 20:50 Brilinta PO 90 mg Q12HR GREER Adm
[2019-08-05 10:39] VITALS: PULSE 76
[2019-08-05] MEDS: PANTOPRAZOLE 40 MG TABLET PO (10:39)
[2019-08-05] MEDS: carvediloL 6.25 MG TABLET PO ×2 (10:39→17:34)
[2019-08-05] MEDS: TICAGRELOR 90 MG TABLET PO ×2 (10:39→19:51)
[2019-08-05] MEDS: OXYBUTYNIN CHLORIDE 5 MG TABLET PO ×3 (10:40→17:34)
[2019-08-05] MEDS: ASPIRIN 81 MG CHEWABLE TABLET PO (10:40)
[2019-08-05] MEDS: HEPARIN SODIUM 5,000 UNITS/ML VIAL 5000 UNITS SUB-Q ×2 (10:40→19:51)
[2019-08-05] MEDS: CHOLECALCIFEROL 1,000 UNIT TABLET 5000 UNITS PO (10:41)
[2019-08-05] MEDS: ASCORBIC ACID 500 MG TABLET PO (10:41)
[2019-08-05 11:11] VITALS: PULSE 76; RESP 18; O2SAT 100
[2019-08-05] MEDS: AMLODIPINE BESYLATE 5 MG TABLET 10 MG PO (13:30)
[2019-08-05] MEDS: ATORVASTATIN 40 MG TABLET 80 MG PO (13:30)
[2019-08-05 14:00] VITALS: BP 149/76; PULSE 84; RESP 20; TEMP 37.2; O2SAT 100
[2019-08-05 17:34] VITALS: PULSE 84
[2019-08-05] MEDS: SENNOSIDES 8.6 MG TABLET PO (19:51)
[2019-08-05] MEDS: DOXAZOSIN MESYLATE 4 MG TABLET PO (19:52)
[2019-08-05 22:00] VITALS: BP 132/75; PULSE 82; RESP 18; TEMP 36.8; O2SAT 98
[2019-08-06 06:00] VITALS: BP 132/68; PULSE 74; RESP 18; TEMP 36.8; O2SAT 99
--- NOTE | 2019-08-06 08:32 | PM.PNNEP ---
Progress Note: A&P Assessment and Plan (1) RENETTA (acute kidney injury): Code(s): N17.9 - Acute kidney failure, unspecified Status: Acute Assessment and Plan: RENETTA urine 'lytes nonprerenal ultrasound is okay creatinine about the same eating and drinking well. will check again tomorrow and see how creatinine is. he is eating an drinking well. (2) Stroke: Code(s): I63.9 - Cerebral infarction, unspecified Status: Acute (3) Hypertension: Code(s): I10 - Essential (primary) hypertension Status: Acute Assessment and Plan: bp well controlled, but not too well controlled. (4) Left hemiplegia: Code(s): G81.94 - Hemiplegia, unspecified affecting left nondominant side Status: Acute Assessment and Plan: .getting physcial therapy Additional Plan Subjective Date/time seen: 08/06/19 08:32 Interval history: He is eating and drinking well he says. No chest pain or shortness of breath. Participating in physical therapy. Review of Systems Cardiovascular: Cardiovascular: Reports no additional cardiovascular complaints Respiratory: Respiratory: Reports no additional respiratory complaints Gastrointestinal: Gastrointestinal: Reports no additional gastrointestinal complaints Genitourinary: Genitourinary: Reports no additional male genitourinary complaints Exam Narrative: Exam Narrative: WDWN in NAD skin no rash head ncat lungs clear cor reg no rub abd BS+ nontender and soft ext no edema. Objective Data Vital Signs Vital Signs: Vital Signs - 24 hr 08/05/19 10:39 08/05/19 11:11 08/05/19 14:00 Temperature 37.2 C Pulse Rate 76 76 84 Respiratory Rate 18 20 Blood Pressure 149/76 H Pulse Oximetry 100 100 08/05/19 17:34 08/05/19 22:00 08/06/19 06:00 Temperature 36.8 C 36.8 C Pulse Rate 84 82 74 Respiratory Rate 18 18 Blood Pressure 132/75 132/68 Pulse Oximetry 98 99 Intake/Output Intake/Output: Intake & Output 08/03/19 08/04/19 08/05/19 08/06/19 23:59 23:59 23:59 23:59 Intake Total 720 480 960 Balance 720 480 960 Meds/Results Medications: Active Medications Generic Name Dose Route Start Last Admin Trade Name Freq PRN Reason Stop Dose Admin Acetaminophen 650 mg 07/17/19 17:06 07/25/19 21:15 Tylenol Tablet PO 650 mg Q4H PRN Administration Pain (Scale Score 1-3) Amlodipine Besylate 10 mg 07/22/19 12:00 08/05/19 13:30 Norvasc PO 10 mg NOON GREER Administration Ascorbic Acid 500 mg 07/18/19 09:00 08/05/19 10:41 Vitamin C PO 500 mg DAILY GREER Administration Aspirin 81 mg 07/18/19 09:00 08/05/19 10:40 Aspirin Chewable PO 81 mg DAILY GREER Administration Atorvastatin Calcium 80 mg 07/22/19 12:00 08/05/19 13:30 Lipitor PO 80 mg NOON GREER Administration Carvedilol 6.25 mg 07/17/19 17:20 08/05/19 17:34 Coreg PO 6.25 mg BIDWM GREER Administration Doxazosin Mesylate 4 mg 07/17/19 21:00 08/05/19 19:52 Cardura PO 4 mg HS GREER Administration Heparin Sodium (Porcine) 5,000 units 08/04/19 09:00 08/05/19 19:51 Heparin Sodium SUB-Q 5,000 units Q12HR GREER Administration Ibuprofen 800 mg 07/17/19 17:06 07/18/19 15:25 Motrin PO 800 mg TID PRN Administration Moderate Pain (Scale Score 5-6) Losartan Potassium 100 mg 07/21/19 21:00 08/03/19 20:58 Cozaar PO 100 mg HS GREER Administration Oxybutynin Chloride 5 mg 07/17/19 17:15 08/05/19 17:34 Ditropan PO 5 mg TID GREER Administration Pantoprazole Sodium 40 mg 07/18/19 09:00 08/05/19 10:39 Protonix PO 40 mg QAM GREER Administration Senna 8.6 mg 07/20/19 21:00 08/05/19 19:51 Senokot Tablet PO 8.6 mg HS GREER Administration Ticagrelor 90 mg 07/17/19 21:00 08/05/19 19:51 Brilinta PO 90 mg Q12HR GREER Administration Tramadol HCl 50 mg 07/19/19 12:57 07/25/19 21:14 Ultram PO 50 mg Q4H PRN Administration
--- NOTE | 2019-08-06 11:40 | PCDIET ---
Nutrition Follow-Up Complete: Nutrition Diagnosis: Decreased sodium needs related to cardiovascular disease as evidenced by hx CVA, HTN. Nutrition Goal: Patient to consume 75% of meals or greater. Goal met. Patient consuming 75-100% of meals on regular diet. 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 Last recorded weight is 74.5 kg. Recommend obtaining new weight. Bowel Motility: Last documented BM on 08/03/19. Labs Reviewed: BUN (31), Cr (2.1) Meds Noted: Vitamin C, Vitamin D, Protonix, Senna Additional Notes: No documented skin breakdown. Will continue to monitor with same goal. Nutrition Monitoring and Evaluation: Follow up every 7 days.
[2019-08-06 12:06] VITALS: PULSE 74
[2019-08-06] MEDS: ASCORBIC ACID 500 MG TABLET PO (12:06)
[2019-08-06] MEDS: carvediloL 6.25 MG TABLET PO ×2 (12:06→17:00)
[2019-08-06] MEDS: OXYBUTYNIN CHLORIDE 5 MG TABLET PO ×3 (12:07→17:01)
[2019-08-06] MEDS: TICAGRELOR 90 MG TABLET PO ×2 (12:07→22:05)
[2019-08-06] MEDS: HEPARIN SODIUM 5,000 UNITS/ML VIAL 5000 UNITS SUB-Q ×2 (12:07→22:05)
[2019-08-06] MEDS: PANTOPRAZOLE 40 MG TABLET PO (12:07)
[2019-08-06] MEDS: ASPIRIN 81 MG CHEWABLE TABLET PO (12:07)
[2019-08-06] MEDS: AMLODIPINE BESYLATE 5 MG TABLET 10 MG PO (13:31)
[2019-08-06] MEDS: ATORVASTATIN 40 MG TABLET 80 MG PO (13:32)
[2019-08-06 14:00] VITALS: BP 138/64; PULSE 79; RESP 18; TEMP 36.2; O2SAT 97
--- NOTE | 2019-08-06 14:26 | WPDNEURORHBP ---
Subjective Date/time seen: 08/06/19 14:26 Interval history: this 74-year-old gentleman is here post stroke we discussed in the team conference is progressing fairly well and walking up to 60 feet with him I can. Nephrology is following is for renal dysfunction. His speech therapy is following for the visual deficit and left-sided neglect. Patient denies any headache nausea vomiting chest pain shortness of breath fever chills sore throat Review of Systems Review of Systems: All systems reviewed & are unremarkable except as noted in HPI and below Functional Status Ambulation Ability Ability to Ambulate 10 Feet: Minimum Assistance X 1 Ability to Ambulate 50 Feet With 2 Turns: Minimum Assistance X 1 Ambulation Assistive Devices: Walker, Wheeled Transfers Ability Ability to Transfer In/Out of Chair: Maximum Assistance X 1 Exam Const: General: comfortable and no acute distress HENMT: General nose exam: Normal nares present Mouth: Yes moist mucous membranes Eyes: General: appearance normal, both eyes and all related structures Other: left-sided visual field defect Neck: Neck: supple and no JVD Resp: Effort & Inspection: normal respiratory effort Auscultation: clear to auscultation bilaterally Cardio: Rate: regular rate Rhythm: regular rhythm GI: GI Palp: Yes Soft to palpation Auscultation: normal bowel sounds Skin: General skin exam: normal color and no rashes or lesions noted Neuro: Other: left-sided hemiparesis improving the neglect is improving visual field defect is stable Extrem: General: normal to inspection Psych: Mental Status: mental status grossly normal Objective Data Vital Signs Vital Signs: Vital Signs - 24 hr 08/05/19 17:34 08/05/19 22:00 08/06/19 06:00 Temperature 36.8 C 36.8 C Pulse Rate 84 82 74 Respiratory Rate 18 18 Blood Pressure 132/75 132/68 Pulse Oximetry 98 99 08/06/19 12:06 Temperature Pulse Rate 74 Respiratory Rate Blood Pressure Pulse Oximetry Intake/Output Intake/Output: Intake & Output 08/03/19 08/04/19 08/05/19 08/06/19 23:59 23:59 23:59 23:59 Intake Total 720 480 960 480 Balance 720 480 960 480 Meds/Results Medications: Active Medications Generic Name Dose Route Start Last Admin Trade Name Freq PRN Reason Stop Dose Admin Acetaminophen 650 mg 07/17/19 17:06 07/25/19 21:15 Tylenol Tablet PO 650 mg Q4H PRN Administration Pain (Scale Score 1-3) Amlodipine Besylate 10 mg 07/22/19 12:00 08/06/19 13:31 Norvasc PO 10 mg NOON GREER Administration Ascorbic Acid 500 mg 07/18/19 09:00 08/06/19 12:06 Vitamin C PO 500 mg DAILY GREER Administration Aspirin 81 mg 07/18/19 09:00 08/06/19 12:07 Aspirin Chewable PO 81 mg DAILY GREER Administration Atorvastatin Calcium 80 mg 07/22/19 12:00 08/06/19 13:32 Lipitor PO 80 mg NOON GREER Administration Carvedilol 6.25 mg 07/17/19 17:20 08/06/19 12:06 Coreg PO 6.25 mg BIDWM GREER Administration Doxazosin Mesylate 4 mg 07/17/19 21:00 08/05/19 19:52 Cardura PO 4 mg HS GREER Administration Heparin Sodium (Porcine) 5,000 units 08/04/19 09:00 08/06/19 12:07 Heparin Sodium SUB-Q 5,000 units Q12HR GREER Administration Ibuprofen 800 mg 07/17/19 17:06 07/18/19 15:25 Motrin PO 800 mg TID PRN Administration Moderate Pain (Scale Score 5-6) Losartan Potassium 100 mg 07/21/19 21:00 08/03/19 20:58 Cozaar PO 100 mg HS GREER Administration Oxybutynin Chloride 5 mg 07/17/19 17:15 08/06/19 13:32 Ditropan PO 5 mg TID GREER Administration Pantoprazole Sodium 40 mg 07/18/19 09:00 08/06/19 12:07 Protonix PO 40 mg QAM GREER Administration Senna 8.6 mg 07/20/19 21:00 08/05/19 19:51 Senokot Tablet PO 8.6 mg HS GREER Administration Ticagrelor 90 mg 07/17/19 21:00 08/06/19 12:07 Brilinta PO 90 mg Q12HR GREER Administration Tramadol HCl 50 mg 07/19/19 12:57 07/25/19 21:14 Ultr
[2019-08-06 17:00] VITALS: PULSE 79
[2019-08-06 17:15] LABS: Creatine Kinase 58 U/L (55-170)
[2019-08-06 20:00] VITALS: PULSE 75; RESP 18; O2SAT 95
[2019-08-06 22:00] VITALS: BP 141/58; PULSE 75; RESP 18; TEMP 36.5; O2SAT 95
[2019-08-06] MEDS: DOXAZOSIN MESYLATE 4 MG TABLET PO (22:05)
[2019-08-06] MEDS: SENNOSIDES 8.6 MG TABLET PO (22:05)
[2019-08-07] VITALS (7 sets, daily range): BP systolic 143–152; BP diastolic 58–72; PULSE 58–88; RESP 16–18; TEMP 36.5–37.6; O2SAT 50–100
[2019-08-07 05:22] LABS: Potassium 3.5 mmol/L (3.4-5.0)
[2019-08-07 05:40] LABS: Albumin Level 3.5 g/dL (3.5-5.1); Blood Urea Nitrogen 29 mg/dL (9-20); Calcium 9.4 mg/dL (8.4-10.2); Carbon Dioxide 24 mmol/L (22-30); Chloride 106 mmol/L (98-107); Estimated CRCL calculation 24 ml/min; Estimated Glomerular Filt Rate 40; Glucose 104 mg/dL (75-110); Phosphorus 3.8 mg/dL (2.5-4.5); Sodium 136 mmol/L (137-145)
[2019-08-07] MEDS: carvediloL 6.25 MG TABLET PO ×2 (08:15→17:32)
[2019-08-07] MEDS: OXYBUTYNIN CHLORIDE 5 MG TABLET PO ×3 (08:16→17:33)
[2019-08-07] MEDS: ASPIRIN 81 MG CHEWABLE TABLET PO (08:16)
[2019-08-07] MEDS: ASCORBIC ACID 500 MG TABLET PO (08:16)
[2019-08-07] MEDS: CHOLECALCIFEROL 1,000 UNIT TABLET 5000 UNITS PO (08:16)
[2019-08-07] MEDS: HEPARIN SODIUM 5,000 UNITS/ML VIAL 5000 UNITS SUB-Q ×2 (08:16→21:27)
[2019-08-07] MEDS: PANTOPRAZOLE 40 MG TABLET PO (08:17)
[2019-08-07] MEDS: TICAGRELOR 90 MG TABLET PO ×2 (08:20→21:27)
[2019-08-07] MEDS: AMLODIPINE BESYLATE 5 MG TABLET 10 MG PO (12:59)
[2019-08-07] MEDS: ATORVASTATIN 40 MG TABLET 80 MG PO (13:00)
--- NOTE | 2019-08-07 14:23 | WPDNEURORHBP ---
Subjective Date/time seen: 08/07/19 14:23 Interval history: the patient is here post right hemispheric stroke with left-sided hemiparesis left-sided neglect and left-sided visual field defect is doing fairly well and making progress in the rehab denies any headache nausea vomiting chest pain shortness of breath Review of Systems Review of Systems: All systems reviewed & are unremarkable except as noted in HPI and below Functional Status Ambulation Ability Ability to Ambulate 10 Feet: Contact Guard Ability to Ambulate 50 Feet With 2 Turns: Contact Guard Ambulation Assistive Devices: Cane, Sriram Transfers Ability Ability to Transfer In/Out of Chair: Maximum Assistance X 1 Exam Const: General: comfortable and no acute distress HENMT: General nose exam: Normal nares present Mouth: Yes moist mucous membranes Eyes: General: appearance normal, both eyes and all related structures Neck: Neck: supple and no JVD Resp: Effort & Inspection: normal respiratory effort Auscultation: clear to auscultation bilaterally Cardio: Rate: regular rate Rhythm: regular rhythm GI: GI Palp: Yes Soft to palpation Auscultation: normal bowel sounds Skin: General skin exam: normal color and no rashes or lesions noted Neuro: Other: awake and alert well oriented time place and person with slowly progressing and improvement in his neurological deficit documented before Extrem: General: normal to inspection Psych: Mental Status: mental status grossly normal Objective Data Vital Signs Vital Signs: Vital Signs - 24 hr 08/06/19 17:00 08/06/19 20:00 08/06/19 22:00 Temperature 36.5 C Pulse Rate 79 75 75 Respiratory Rate 18 18 Blood Pressure 141/58 H Pulse Oximetry 95 95 08/07/19 06:00 08/07/19 08:15 Temperature 36.5 C Pulse Rate 88 88 Respiratory Rate 18 Blood Pressure 152/64 H Pulse Oximetry 100 Intake/Output Intake/Output: Intake & Output 08/04/19 08/05/19 08/06/19 08/07/19 23:59 23:59 23:59 23:59 Intake Total 480 960 720 120 Balance 480 960 720 120 Meds/Results Medications: Active Medications Generic Name Dose Route Start Last Admin Trade Name Freq PRN Reason Stop Dose Admin Acetaminophen 650 mg 07/17/19 17:06 07/25/19 21:15 Tylenol Tablet PO 650 mg Q4H PRN Administration Pain (Scale Score 1-3) Amlodipine Besylate 10 mg 07/22/19 12:00 08/07/19 12:59 Norvasc PO 10 mg NOON GREER Administration Ascorbic Acid 500 mg 07/18/19 09:00 08/07/19 08:16 Vitamin C PO 500 mg DAILY GREER Administration Aspirin 81 mg 07/18/19 09:00 08/07/19 08:16 Aspirin Chewable PO 81 mg DAILY GREER Administration Atorvastatin Calcium 80 mg 07/22/19 12:00 08/07/19 13:00 Lipitor PO 80 mg NOON GREER Administration Carvedilol 6.25 mg 07/17/19 17:20 08/07/19 08:15 Coreg PO 6.25 mg BIDWM GREER Administration Doxazosin Mesylate 4 mg 07/17/19 21:00 08/06/19 22:05 Cardura PO 4 mg HS GREER Administration Heparin Sodium (Porcine) 5,000 units 08/04/19 09:00 08/07/19 08:16 Heparin Sodium SUB-Q 5,000 units Q12HR GREER Administration Losartan Potassium 100 mg 07/21/19 21:00 08/03/19 20:58 Cozaar PO 100 mg HS GREER Administration Oxybutynin Chloride 5 mg 07/17/19 17:15 08/07/19 13:00 Ditropan PO 5 mg TID GREER Administration Pantoprazole Sodium 40 mg 07/18/19 09:00 08/07/19 08:17 Protonix PO 40 mg QAM GREER Administration Senna 8.6 mg 07/20/19 21:00 08/06/19 22:05 Senokot Tablet PO 8.6 mg HS GREER Administration Ticagrelor 90 mg 07/17/19 21:00 08/07/19 08:20 Brilinta PO 90 mg Q12HR GREER Administration Tramadol HCl 50 mg 07/19/19 12:57 07/25/19 21:14 Ultram PO 50 mg Q4H PRN Administration Pain Rated 4-6 Vitamin D 5,000 unit 07/19/19 09:00 08/07/19 08:16 Vitamin D PO 5,000 unit [id number] GREER Administration Radiology Results: ITS Impressions Shoulder X-Ray
[2019-08-07 15:41] LABS: Chloride Rand Ur 54 mmol/L (32-290); Chloride/Creatinine Rand Ur 46 (23-275); Creatinine Random Urine 118 mg/dL (20-320)
[2019-08-07] MEDS: DOXAZOSIN MESYLATE 4 MG TABLET PO (21:27)
[2019-08-07] MEDS: SENNOSIDES 8.6 MG TABLET PO (21:27)
[2019-08-08] VITALS (7 sets, daily range): BP systolic 150–155; BP diastolic 69–71; PULSE 70–89; RESP 18–20; TEMP 36.8–37.1; O2SAT 95–100
[2019-08-08 05:27] LABS: Basophils Percent Auto 0.4 % (0.2-1.2); Eosinophils Absolute Auto 0.3 K/mm3 (0-0.3); Eosinophils Percent Auto 6.2 % (0-4.4); Hematocrit 30.8 % (42.0-52.0); Hemoglobin 10.4 g/dL (14.0-18.0); Immature Granulocyte Absolute 0.01 K/mm3 (0.00-0.031); Immature Granulocyte Percent A 0.2 % (0-0.5); Lymphocytes Absolute Auto 1.33 K/mm3 (0.9-3.2); Lymphocytes Percent Auto 26.5 % (18.3-44.2); Mean Corpuscular HGB Conc 33.8 g/dl (32-36); Mean Corpuscular Volume 91.7 fl (80-100); Mean Platelet Volume 10.4 fl (7.4-10.4); Monocytes Absolute Auto 0.4 K/mm3 (0.1-0.6); Monocytes Percent Auto 8.4 % (2.6-8.5); Neutrophils Absolute Auto 2.9 K/mm3 (1.3-6.7); Neutrophils Percent Auto 58.3 % (45.5-73.1); Platelet Count Result 318 k/mm3 (150-375); Red Blood Count 3.36 M/mm3 (4.6-6.20); Red Cell Distribution Width 15.8 % (11.5-14.5)
[2019-08-08 05:34] LABS: Blood Urea Nitrogen 30 mg/dL (9-20); Calcium 9.5 mg/dL (8.4-10.2); Carbon Dioxide 24 mmol/L (22-30); Chloride 107 mmol/L (98-107); Estimated CRCL calculation 23 ml/min; Estimated Glomerular Filt Rate 37; Glucose 110 mg/dL (75-110); Potassium 3.9 mmol/L (3.4-5.0); Sodium 136 mmol/L (137-145)
[2019-08-08] MEDS: HEPARIN SODIUM 5,000 UNITS/ML VIAL 5000 UNITS SUB-Q ×2 (08:55→20:44)
[2019-08-08] MEDS: ASCORBIC ACID 500 MG TABLET PO (08:55)
[2019-08-08] MEDS: carvediloL 6.25 MG TABLET PO ×2 (08:55→18:19)
[2019-08-08] MEDS: ASPIRIN 81 MG CHEWABLE TABLET PO (08:55)
[2019-08-08] MEDS: OXYBUTYNIN CHLORIDE 5 MG TABLET PO ×3 (08:55→18:20)
[2019-08-08] MEDS: PANTOPRAZOLE 40 MG TABLET PO (08:56)
[2019-08-08] MEDS: TICAGRELOR 90 MG TABLET PO ×2 (08:56→20:44)
--- NOTE | 2019-08-08 11:09 | WPDNEURORHBP ---
Subjective Date/time seen: 08/08/19 11:09 Interval history: This 74-year-old gentleman is here which is compensated his a left-sided visual field defect and the neglect and working quite well with speech therapy left-sided hemiparesis is improving and he will be ready to be discharged tomorrow he is the BMP still shows creatinine around 2 and the industrial twisting machine operator has been following he will need a follow-up with the industrial twisting machine operator as an outpatient Review of Systems Review of Systems: All systems reviewed & are unremarkable except as noted in HPI and below Functional Status Ambulation Ability Ability to Ambulate 10 Feet: Contact Guard Ability to Ambulate 50 Feet With 2 Turns: Contact Guard Ambulation Assistive Devices: Cane, Sriram Transfers Ability Ability to Transfer In/Out of Chair: Maximum Assistance X 1 Exam Const: General: comfortable and no acute distress HENMT: General nose exam: Normal nares present Mouth: Yes moist mucous membranes Eyes: General: appearance normal, both eyes and all related structures Neck: Neck: supple and no JVD Resp: Effort & Inspection: normal respiratory effort Auscultation: clear to auscultation bilaterally Cardio: Rate: regular rate Rhythm: regular rhythm GI: GI Palp: Yes Soft to palpation Auscultation: normal bowel sounds Skin: General skin exam: normal color and no rashes or lesions noted Neuro: Other: patient is awake and alert well oriented his left-sided hemiparesis improving he is compensating for the left-sided visual field defect with the help of these speech pathologist neglect is better visual field defect is there Extrem: General: normal to inspection Psych: Mental Status: mental status grossly normal Objective Data Vital Signs Vital Signs: Vital Signs - 24 hr 08/07/19 14:00 08/07/19 17:32 08/07/19 20:00 Temperature 37.1 C Pulse Rate 58 L 58 L 86 Respiratory Rate 16 18 Blood Pressure 151/72 H Pulse Oximetry 100 95 08/07/19 22:00 08/08/19 00:14 08/08/19 06:00 Temperature 37.6 C H 37.1 C Pulse Rate 71 86 70 Respiratory Rate 18 18 Blood Pressure 143/58 H 150/70 H Pulse Oximetry 100 95 100 08/08/19 08:55 Temperature Pulse Rate 70 Respiratory Rate Blood Pressure Pulse Oximetry Intake/Output Intake/Output: Intake & Output 06/15/20 08/06/19 08/07/19 08/08/19 23:59 23:59 23:59 23:59 Intake Total 960 720 360 240 Balance 960 720 360 240 Meds/Results Medications: Active Medications Generic Name Dose Route Start Last Admin Trade Name Freq PRN Reason Stop Dose Admin Acetaminophen 650 mg 07/17/19 17:06 07/25/19 21:15 Tylenol Tablet PO 650 mg Q4H PRN Administration Pain (Scale Score 1-3) Amlodipine Besylate 10 mg 07/22/19 12:00 08/07/19 12:59 Norvasc PO 10 mg NOON GREER Administration Ascorbic Acid 500 mg 07/18/19 09:00 08/08/19 08:55 Vitamin C PO 500 mg DAILY GREER Administration Aspirin 81 mg 07/18/19 09:00 08/08/19 08:55 Aspirin Chewable PO 81 mg DAILY GREER Administration Atorvastatin Calcium 80 mg 07/22/19 12:00 08/07/19 13:00 Lipitor PO 80 mg NOON GREER Administration Carvedilol 6.25 mg 07/17/19 17:20 08/08/19 08:55 Coreg PO 6.25 mg BIDWM GREER Administration Doxazosin Mesylate 4 mg 07/17/19 21:00 08/07/19 21:27 Cardura PO 4 mg HS GREER Administration Heparin Sodium (Porcine) 5,000 units 08/04/19 09:00 08/08/19 08:55 Heparin Sodium SUB-Q 5,000 units Q12HR GREER Administration Losartan Potassium 100 mg 07/21/19 21:00 08/03/19 20:58 Cozaar PO 100 mg HS GREER Administration Oxybutynin Chloride 5 mg 07/17/19 17:15 08/08/19 08:55 Ditropan PO 5 mg TID GREER Administration Pantoprazole Sodium 40 mg 07/18/19 09:00 08/08/19 08:56 Protonix PO 40 mg QAM GREER Administration Senna 8.6 mg 07/20/19 21:00 08/07/19 21:27 Senokot Tablet PO 8.6 mg HS GREER Administration Ticagrelor 90 mg 07/17/19 21:00 08/08/19
[2019-08-08] MEDS: ATORVASTATIN 40 MG TABLET 80 MG PO (12:56)
[2019-08-08] MEDS: AMLODIPINE BESYLATE 5 MG TABLET 10 MG PO (12:56)
--- NOTE | 2019-08-08 13:48 | PM.PNNEP ---
Progress Note: A&P Assessment and Plan (1) RENETTA (acute kidney injury): Code(s): N17.9 - Acute kidney failure, unspecified Status: Acute Assessment and Plan: RENETTA urine 'lytes nonprerenal ultrasound is okay kidney may be a little bit small at 9.3cm. Usually the left kidney is bigger than the right kidney. Urine protein is only mildly elevated at about 300. creatinine about the same eating and drinking well. Creatinine seems stable. We will check a renal scan to make sure has blood flow to both kidneys. he is eating an drinking well. Will check serology and a renal scan. (2) Stroke: Code(s): I63.9 - Cerebral infarction, unspecified Status: Acute Assessment and Plan: Getting physical therapy and occupational therapy (3) Hypertension: Code(s): I10 - Essential (primary) hypertension Status: Acute Assessment and Plan: bp well controlled, (4) Left hemiplegia: Code(s): G81.94 - Hemiplegia, unspecified affecting left nondominant side Status: Acute Assessment and Plan: .getting physcial therapy Additional Plan Subjective Date/time seen: 08/08/19 13:48 Interval history: He is eating and drinking well he says. Sitting up and finishing his meal. Eating and drinking well. No chest pain or shortness of breath. Review of Systems Cardiovascular: Cardiovascular: Reports no additional cardiovascular complaints Respiratory: Respiratory: Reports no additional respiratory complaints Gastrointestinal: Gastrointestinal: Reports no additional gastrointestinal complaints Genitourinary: Genitourinary: Reports no additional male genitourinary complaints Exam Narrative: Exam Narrative: WDWN in NAD skin no rash head ncat lungs clear cor reg no rub abd BS+ nontender and soft ext no edema. Objective Data Vital Signs Vital Signs: Vital Signs - 24 hr 08/07/19 14:00 08/07/19 17:32 08/07/19 20:00 Temperature 37.1 C Pulse Rate 58 L 58 L 86 Respiratory Rate 16 18 Blood Pressure 151/72 H Pulse Oximetry 100 95 08/07/19 22:00 08/08/19 00:14 08/08/19 06:00 Temperature 37.6 C H 37.1 C Pulse Rate 71 86 70 Respiratory Rate 18 18 Blood Pressure 143/58 H 150/70 H Pulse Oximetry 100 95 100 08/08/19 08:55 Temperature Pulse Rate 70 Respiratory Rate Blood Pressure Pulse Oximetry Intake/Output Intake/Output: Intake & Output 08/05/19 08/06/19 08/07/19 08/08/19 23:59 23:59 23:59 23:59 Intake Total 960 720 360 240 Balance 960 720 360 240 Meds/Results Medications: Active Medications Generic Name Dose Route Start Last Admin Trade Name Freq PRN Reason Stop Dose Admin Acetaminophen 650 mg 07/17/19 17:06 07/25/19 21:15 Tylenol Tablet PO 650 mg Q4H PRN Administration Pain (Scale Score 1-3) Amlodipine Besylate 10 mg 07/22/19 12:00 08/08/19 12:56 Norvasc PO 10 mg NOON GREER Administration Ascorbic Acid 500 mg 07/18/19 09:00 08/08/19 08:55 Vitamin C PO 500 mg DAILY GREER Administration Aspirin 81 mg 07/18/19 09:00 08/08/19 08:55 Aspirin Chewable PO 81 mg DAILY GREER Administration Atorvastatin Calcium 80 mg 07/22/19 12:00 08/08/19 12:56 Lipitor PO 80 mg NOON GREER Administration Carvedilol 6.25 mg 07/17/19 17:20 08/08/19 08:55 Coreg PO 6.25 mg BIDWM GREER Administration Doxazosin Mesylate 4 mg 07/17/19 21:00 08/07/19 21:27 Cardura PO 4 mg HS GREER Administration Heparin Sodium (Porcine) 5,000 units 08/04/19 09:00 08/08/19 08:55 Heparin Sodium SUB-Q 5,000 units Q12HR GREER Administration Losartan Potassium 100 mg 07/21/19 21:00 08/03/19 20:58 Cozaar PO 100 mg HS GREER Administration Oxybutynin Chloride 5 mg 07/17/19 17:15 08/08/19 12:56 Ditropan PO 5 mg TID GREER Administration Pantoprazole Sodium 40 mg 07/18/19 09:00 08/08/19 08:56 Protonix PO 40 mg QAM GREER Administration Senna 8.6 mg
[2019-08-08 14:50] LABS: Creatine Kinase 49 U/L (55-170)
[2019-08-08 14:59] LABS: Complement C3 121 mg/dL (88-165)
[2019-08-08 15:25] LABS: Erythrocyte Sedimentation Rate 86 mm/hr (0-20)
[2019-08-08 18:34] LABS: Add Urine Microscopic? YES; Appearance Urine Cloudy (Clear); Bacteria Urine 4+ /hpf; Bilirubin Urine Negative (Negative); Blood Urine Negative (Negative); Color Urine Yellow (Yellow); Glucose Urine UA Negative (Negative); Ketones Urine Negative (Negative); Leukocyte Esterase Ur 3+ LEU/UL (NEGATIVE); Mucus Urine Rare /lpf; Nitrate Urine Negative (Negative); Protein Urine 1+ mg/dL (Negative); Specific Grav Ur 1.014 (1.001-1.035); Squamous Epithelial Cell Urine Rare /hpf (Few); Urobilinogen Urine Negative mg/dL (<2.0); WBC Urine >75 /hpf (0-3)
[2019-08-08] MEDS: DOXAZOSIN MESYLATE 4 MG TABLET PO (20:44)
[2019-08-08] MEDS: SENNOSIDES 8.6 MG TABLET PO (20:44)
[2019-08-09 05:16] LABS: Blood Urea Nitrogen 32 mg/dL (9-20); Calcium 9.3 mg/dL (8.4-10.2); Carbon Dioxide 24 mmol/L (22-30); Chloride 106 mmol/L (98-107); Estimated CRCL calculation 24 ml/min; Estimated Glomerular Filt Rate 40; Glucose 101 mg/dL (75-110); Potassium 3.9 mmol/L (3.4-5.0); Sodium 136 mmol/L (137-145)
[2019-08-09 06:00] VITALS: BP 152/67; PULSE 78; RESP 18; TEMP 36.6; O2SAT 100
[2019-08-09 08:00] VITALS: PULSE 78; RESP 18; O2SAT 100
[2019-08-09] MEDS: ASCORBIC ACID 500 MG TABLET PO (10:02)
[2019-08-09] MEDS: ASPIRIN 81 MG CHEWABLE TABLET PO (10:02)
[2019-08-09] MEDS: PANTOPRAZOLE 40 MG TABLET PO (10:03)
[2019-08-09] MEDS: OXYBUTYNIN CHLORIDE 5 MG TABLET PO ×2 (10:03→13:04)
[2019-08-09] MEDS: HEPARIN SODIUM 5,000 UNITS/ML VIAL 5000 UNITS SUB-Q (10:03)
[2019-08-09] MEDS: TICAGRELOR 90 MG TABLET PO (10:03)
[2019-08-09 10:04] VITALS: PULSE 78
[2019-08-09] MEDS: CHOLECALCIFEROL 1,000 UNIT TABLET 5000 UNITS PO (10:04)
[2019-08-09] MEDS: carvediloL 6.25 MG TABLET PO (10:04)
--- NOTE | 2019-08-09 11:51 | WPDNEURORHBP ---
Subjective Date/time seen: 08/09/19 11:51 Interval history: patient from the neurological stand point is doing well and is ready to be discharged he has been followed by the Nephrology for the acute kidney injury and his losartan has been held since then however the in seed cone picker note feels that the acute kidney injury is not pre renal and he had order the renal scan nuclear medicine which shows decreased renal function primarily on the left side and overall decreased renal function I have asked our nurse [place] to call him whether not he wants to make any changes or any further workup and also if he is ready to be discharged today will he be willing to follow him up are what would be his recommendations otherwise from the neurological standpoint in the rehab point the patient is ready to be discharged Review of Systems Review of Systems: All systems reviewed & are unremarkable except as noted in HPI and below Functional Status Ambulation Ability Ability to Ambulate 10 Feet: Contact Guard Ability to Ambulate 50 Feet With 2 Turns: Contact Guard Ambulation Assistive Devices: Cane, Sriram Transfers Ability Ability to Transfer In/Out of Chair: Maximum Assistance X 1 Exam Const: General: comfortable and no acute distress HENMT: General nose exam: Normal nares present Mouth: Yes moist mucous membranes Eyes: General: appearance normal, both eyes and all related structures Neck: Neck: supple and no JVD Resp: Effort & Inspection: normal respiratory effort Auscultation: clear to auscultation bilaterally Cardio: Rate: regular rate Rhythm: regular rhythm GI: GI Palp: Yes Soft to palpation Auscultation: normal bowel sounds Skin: General skin exam: normal color and no rashes or lesions noted Neuro: Other: patient's is awake and alert well oriented not any distress denies any aches and pains his left-sided hemiparesis has improved likewise is left-sided neglect as much improved however he is left with left-sided visual field defect which is rather dense and he is compensating for it remarkably well Extrem: General: normal to inspection Psych: Mental Status: mental status grossly normal Objective Data Vital Signs Vital Signs: Vital Signs - 24 hr 08/08/19 14:00 08/08/19 18:19 08/08/19 20:00 Temperature 36.8 C Pulse Rate 89 89 81 Respiratory Rate 20 18 Blood Pressure 155/69 H Pulse Oximetry 100 97 08/08/19 22:00 08/09/19 06:00 08/09/19 08:00 Temperature 37.1 C 36.6 C Pulse Rate 81 78 78 Respiratory Rate 18 18 18 Blood Pressure 153/71 H 152/67 H Pulse Oximetry 97 100 100 08/09/19 10:04 Temperature Pulse Rate 78 Respiratory Rate Blood Pressure Pulse Oximetry Intake/Output Intake/Output: Intake & Output 08/06/19 08/07/19 08/08/19 08/09/19 23:59 23:59 23:59 23:59 Intake Total 720 360 720 240 Balance 720 360 720 240 Meds/Results Medications: Active Medications Generic Name Dose Route Start Last Admin Trade Name Freq PRN Reason Stop Dose Admin Acetaminophen 650 mg 07/17/19 17:06 07/25/19 21:15 Tylenol Tablet PO 650 mg Q4H PRN Administration Pain (Scale Score 1-3) Amlodipine Besylate 10 mg 07/22/19 12:00 08/08/19 12:56 Norvasc PO 10 mg NOON GREER Administration Ascorbic Acid 500 mg 07/18/19 09:00 08/09/19 10:02 Vitamin C PO 500 mg DAILY GREER Administration Aspirin 81 mg 07/18/19 09:00 08/09/19 10:02 Aspirin Chewable PO 81 mg DAILY GREER Administration Atorvastatin Calcium 80 mg 07/22/19 12:00 08/08/19 12:56 Lipitor PO 80 mg NOON GREER Administration Carvedilol 6.25 mg 07/17/19 17:20 08/09/19 10:04 Coreg PO 6.25 mg BIDWM GREER Administration Doxazosin Mesylate 4 mg 07/17/19 21:00 08/08/19 20:44 Cardura PO 4 mg HS GREER Administration Heparin Sodium (Porcine) 5,000 units 08/04/19 09:00 08/09/19 10:03 Heparin Sodium SUB-Q 5,000 units Q12HR GREER Administration Losartan Potassium 100 mg
--- NOTE | 2019-08-09 11:54 | PM.PNNEP ---
Progress Note: A&P Assessment and Plan (1) RENETTA (acute kidney injury): Code(s): N17.9 - Acute kidney failure, unspecified Status: Acute Assessment and Plan: RENETTA urine 'lytes nonprerenal ultrasound is okay kidney may be a little bit small at 9.3cm. Usually the left kidney is bigger than the right kidney. Urine protein is only mildly elevated at about 300. At [facility] he had acute kidney injury as well. His creatinine flory to 1.5 and then improved by discharge. He is eating and drinking well. His exam does not show dehydration. Urine electrolytes are non pre renal. So I do not think pre renal factors are playing a role here. Renal scan shows uptake without excretion. The left kidney, which is smaller on ultrasound, shows less function as expected. No wedge defects. And both kidneys are getting blood flow. His creatinine is stable at 2.0. This appears to be ATN. The renal function is not worsening. We will see how his serology looks. Urinalysis is positive. Will get a culture and treat him empirically. (2) Stroke: Code(s): I63.9 - Cerebral infarction, unspecified Status: Acute Assessment and Plan: Getting physical therapy and occupational therapy (3) Hypertension: Code(s): I10 - Essential (primary) hypertension Status: Acute Assessment and Plan: bp well controlled, (4) Left hemiplegia: Code(s): G81.94 - Hemiplegia, unspecified affecting left nondominant side Status: Acute Assessment and Plan: .getting physcial therapy Additional Plan Subjective Date/time seen: 08/09/19 11:54 Interval history: He feels well. He had a good breakfast. Getting physical therapy and tolerating this well.. No chest pain or shortness of breath. Review of Systems Cardiovascular: Cardiovascular: Reports no additional cardiovascular complaints Respiratory: Respiratory: Reports no additional respiratory complaints Gastrointestinal: Gastrointestinal: Reports no additional gastrointestinal complaints Genitourinary: Genitourinary: Reports no additional male genitourinary complaints Exam Narrative: Exam Narrative: WDWN in NAD skin no rash or subcu nodules head ncat lungs clear cor reg no rub or gallop abd BS+ nontender and soft ext no edema. Objective Data Vital Signs Vital Signs: Vital Signs - 24 hr 08/08/19 14:00 08/08/19 18:08/08/19 20:00 Temperature 36.8 C Pulse Rate 89 89 81 Respiratory Rate 20 18 Blood Pressure 155/69 H Pulse Oximetry 100 97 08/08/19 22:00 08/09/19 06:00 08/09/19 08:00 Temperature 37.1 C 36.6 C Pulse Rate 81 78 78 Respiratory Rate 18 18 18 Blood Pressure 153/71 H 152/67 H Pulse Oximetry 97 100 100 08/09/19 10:04 Temperature Pulse Rate 78 Respiratory Rate Blood Pressure Pulse Oximetry Intake/Output Intake/Output: Intake & Output 08/06/19 08/07/19 08/08/19 08/09/19 23:59 23:59 23:59 23:59 Intake Total 720 360 720 240 Balance 720 360 720 240 Meds/Results Medications: Active Medications Generic Name Dose Route Start Last Admin Trade Name Freq PRN Reason Stop Dose Admin Acetaminophen 650 mg 07/17/19 17:06 07/25/19 21:15 Tylenol Tablet PO 650 mg Q4H PRN Administration Pain (Scale Score 1-3) Amlodipine Besylate 10 mg 07/22/19 12:00 08/08/19 12:56 Norvasc PO 10 mg NOON GREER Administration Ascorbic Acid 500 mg 07/18/19 09:00 08/09/19 10:02 Vitamin C PO 500 mg DAILY GREER Administration Aspirin 81 mg 07/18/19 09:00 08/09/19 10:02 Aspirin Chewable PO 81 mg DAILY GREER Administration Atorvastatin Calcium 80 mg 07/22/19 12:00 08/08/19 12:56 Lipitor PO 80 mg NOON GREER Administration Carvedilol 6.25 mg 07/17/19 17:20 08/09/19 10:04 Coreg PO 6.25 mg BIDWM GREER Administration Doxazosin Mesylate 4 mg 07/17/19 21:00 08/08/19 20:44 Cardura PO 4 mg HS GREER Administration Hepa
[2019-08-09] MEDS: ATORVASTATIN 40 MG TABLET 80 MG PO (13:04)
[2019-08-09] MEDS: AMLODIPINE BESYLATE 5 MG TABLET 10 MG PO (13:04)
[2019-08-09 14:00] VITALS: BP 164/76; PULSE 77; RESP 20; TEMP 36.7; O2SAT 99
[2019-08-12 23:27] LABS: Kappa\\Lambda Light Chains 0.11 (0.26-1.65); Lambda Light Chain 731.9 mg/L (5.7-26.3)
--- NOTE | 2019-08-14 16:48 | DS_ITS ---
DATE OF DISCHARGE: 08/09/2019 A 74-year-old right-handed male was admitted to [facility] Rehab floor with acute primary rehab impairment category of a stroke and etiological diagnosis of right internal carotid artery, ischemic stroke. In addition to the active comorbid condition of: 1. Hypertension. 2. Hypothyroidism. 3. GERD. 4. History of cancer of the prostate. 5. History of tobacco abuse. DISCHARGE ACTIVE COMORBID CONDITION: 1. Hypertension. 2. Hypothyroidism. 3. GERD. 4. History of cancer of the prostate. 5. History of tobacco abuse. As per the information available, the patient had the ongoing history of hypertension, tobacco abuse, hypothyroidism, GERD, and prostatic cancer for which he has undergone the radiation and prostatectomy presented to [facility] Emergency Department with left hemiparesis along with the facial droop, left-sided neglect and right gaze preference. Reportedly called out loudly for son to come and help him around 09:30 a.m. on the day of the incident. The son found him on the kitchen floor, who helped him up to the sofa then he slumped to the left side was unable to get up and take his medication. The son did notice that his face was drooping on the left side. He called the EMS. At NIHSS was 20, tPA was administered at 11:44 a.m., and was transferred to [facility] for thrombectomy evaluation. On arrival to [place], NIHSS was 12 and a tPA was running. CTA revealed right internal carotid artery occlusion with the proximal right M2 involvement. Transthoracic echocardiogram revealed mild left ventricular hypertrophy and PFO. CT of the chest revealed no COVID-19. He was taken to Interventional Radiology suit and angiography was done, which revealed right cervical internal carotid artery stenosis without any other lesion. He underwent angioplasty followed by the stent placement on 06/28/2019. Subsequently, he was intubated in the Interventional Radiology and per protocol was not extubated. He was transferred to the neuro ICU on nicardipine drip. He was extubated shortly after and moved to ICU and was placed on room air. He was continued on atorvastatin, aspirin and Brilinta. He developed mild acute kidney injury and cough following extubation, but subsequently he was on room air with oxygen saturation of 100%. He feels the swallowing eval test on June 29 and was started tube feeding. On July 08, he passed the swallowing test and G-tube was deferred. On July 02, he had a bout of supraventricular tachycardia and required adenosine and subsequently he was placed on Coreg b.i.d. UTI, his UA was positive for urinary tract infection. He was started on 5-day course of ceftriaxone. He was continued on aspirin, atorvastatin, Brilinta and heparin drip for DVT prophylaxis. He continued to have dense left hemiplegia. He had not traveled outside the [place] or had contact with someone, who was still ill. Has not traveled outside the [place] in the past 21 days. He has not traveled to an area of the [place] that was experiencing known transmission of castro virus and had not had any close personal contact with anyone that had the infection. He had no fever, had no respiratory symptomatology. LEVEL OF FUNCTION AT THE TIME OF ADMISSION: The patient required supervision for eating, substantial assistance for oral hygiene. He was dependent for toileting, required substantial assistance for bathing, upper body dressing, lower body dressing and footwear. Partial assistance for rolling in bed, substantial assistance for sit to lying, lying to sit, sit to stand, chair transfer. He was dependent for toilet transfer. He was unable to transfer in the car, unable to walk 10 feet, unable to walk 50 feet with 2 turns, unable to walk 150 feet. He was unable to walk 10 feet on uneven surfaces, c
[2019-08-15 17:40] LABS: Complement Total CH50 >60 U/mL (31-60)
== END 2019-08-09 16:15 | disposition home health service (06) | DRG 57 ==
PROVIDERS: Internal Medicine Nephrology; Admitting Provider Psychiatry & Neurology Neurology; PCP Internal Medicine; Visit Provider Psychiatry & Neurology Neurology
DX: I69.354 Hemiplegia and hemiparesis following cerebral infarction affecting left non-dominant side (principal); N17.9 Acute kidney failure, unspecified; I69.392 Facial weakness following cerebral infarction; I69.398 Other sequelae of cerebral infarction; S43.03 Inferior subluxation and dislocation of humerus; R13.10 Dysphagia, unspecified; E11.29 Type 2 diabetes mellitus with other diabetic kidney complication; E03.9 Hypothyroidism, unspecified; F17.290 Nicotine dependence, other tobacco product, uncomplicated; H53.40 Unspecified visual field defects; H51.8 Other specified disorders of binocular movement; I65.21 Occlusion and stenosis of right carotid artery; I11.9 Hypertensive heart disease without heart failure; N28.9 Disorder of kidney and ureter, unspecified; K21.9 Gastro-esophageal reflux disease without esophagitis; Z92.3 Personal history of irradiation; Z95.828 Presence of other vascular implants and grafts; Z90.79 Acquired absence of other genital organ(s); Z85.46 Personal history of malignant neoplasm of prostate
CPT/HCPCS: 36415; 73030; 76775; 78707; 80048; 80069; 81001; 81050; 82436; 82550; 82570; 83874; 83883; 84156; 84300; 84439; 84443; 84481; 85025; 85652; 85999; 86038; 86160; 86162; 86334; 86335; 87077; 87086; 87088; 87186; 92507; 92610; 96125; 97110; 97112; 97116; 97129; 97130; 97161; 97162; 97166; 97530; 97535; 97542; A9270; A9562; J1644

== ENCOUNTER 2019-10-14 13:51 | Outpatient (CLI) | payer MEDICARE, OTHER, SELFPAY ==
[2019-10-14 14:17] LABS: Basophils Absolute Auto 0.1 K/mm3 (0.0-0.1); Basophils Percent Auto 0.9 % (0.2-1.2); Eosinophils Absolute Auto 0.4 K/mm3 (0-0.3); Eosinophils Percent Auto 7.5 % (0-4.4); Hematocrit 31.3 % (42.0-52.0); Hemoglobin 10.2 g/dL (14.0-18.0); Immature Granulocyte Absolute 0.02 K/mm3 (0.00-0.031); Immature Granulocyte Percent A 0.4 % (0-0.5); Lymphocytes Absolute Auto 1.87 K/mm3 (0.9-3.2); Lymphocytes Percent Auto 34.1 % (18.3-44.2); Mean Corpuscular HGB Conc 32.6 g/dl (32-36); Mean Corpuscular Hemoglobin 30.4 pg (26-34); Mean Corpuscular Volume 93.2 fl (80-100); Mean Platelet Volume 10.4 fl (7.4-10.4); Monocytes Absolute Auto 0.6 K/mm3 (0.1-0.6); Monocytes Percent Auto 11.3 % (2.6-8.5); Neutrophils Absolute Auto 2.5 K/mm3 (1.3-6.7); Neutrophils Percent Auto 45.8 % (45.5-73.1); Platelet Count Result 345 k/mm3 (150-375); Red Blood Count 3.36 M/mm3 (4.6-6.20); Red Cell Distribution Width 15.4 % (11.5-14.5); White Blood Count 5.5 K/mm3 (4.5-10.0)
[2019-10-14 16:37] LABS: Alanine Aminotransferase 14 U/L (4-50); Albumin Level 3.9 g/dL (3.5-5.1); Alkaline Phosphatase 101 U/L (38-126); Anion Gap 7 mmol/L (8-16); Aspartate Amino Transferase 22 U/L (17-59); Bilirubin,Total 0.3 mg/dL (0.2-1.3); Blood Urea Nitrogen 27 mg/dL (9-20); Calcium 9.4 mg/dL (8.4-10.2); Carbon Dioxide 28 mmol/L (22-30); Chloride 103 mmol/L (98-107); Estimated Glomerular Filt Rate 35; Glucose 102 mg/dL (75-110); Potassium 3.4 mmol/L (3.4-5.0); Sodium 138 mmol/L (137-145)
[2019-10-14 16:46] LABS: Immunoglobulin A 183 mg/dL (70-400); Immunoglobulin G 1193 mg/dL (700-1600); Immunoglobulin M 46 mg/dL (40-230)
[2019-10-18 16:28] LABS: Lambda Light Chain 834.2 mg/L (5.7-26.3)
[2019-10-19 05:41] LABS: Albumin 3.3 g/dL (3.8-4.8); Alpha 1 Globulin 0.5 g/dL (0.2-0.3); Alpha 2 Globulin 0.7 g/dL (0.5-0.9); Beta 1 Globulin 0.4 g/dL (0.4-0.6); Protein, Total 6.1 g/dL (6.1-8.1)
== END 2019-10-14 13:52 | disposition home or self-care (01) ==
PROVIDERS: PCP Internal Medicine; Visit Provider Internal Medicine Hematology & Oncology
DX: D72.9 Disorder of white blood cells, unspecified (principal)
CPT/HCPCS: 36415; 80053; 82784; 83883; 84155; 84165; 85025; 86334

== ENCOUNTER 2020-04-16 09:46 | Outpatient (CLI) | payer MEDICARE, OTHER, SELFPAY ==
[2020-04-16 10:16] LABS: Basophils Percent Auto 0.7 % (0.2-1.2); Eosinophils Absolute Auto 0.1 K/mm3 (0-0.3); Eosinophils Percent Auto 1.6 % (0-4.4); Hematocrit 27.5 % (42.0-52.0); Hemoglobin 8.6 g/dL (14.0-18.0); Immature Granulocyte Absolute 0.02 K/mm3 (0.00-0.031); Immature Granulocyte Percent A 0.4 % (0-0.5); Lymphocytes Absolute Auto 1.09 K/mm3 (0.9-3.2); Lymphocytes Percent Auto 19.8 % (18.3-44.2); Mean Corpuscular HGB Conc 31.3 g/dl (32-36); Mean Corpuscular Hemoglobin 28.7 pg (26-34); Mean Corpuscular Volume 91.7 fl (80-100); Mean Platelet Volume 10.5 fl (7.4-10.4); Monocytes Absolute Auto 0.4 K/mm3 (0.1-0.6); Monocytes Percent Auto 7.4 % (2.6-8.5); Neutrophils Absolute Auto 3.9 K/mm3 (1.3-6.7); Neutrophils Percent Auto 70.1 % (45.5-73.1); Platelet Count Result 355 k/mm3 (150-375); Red Cell Distribution Width 17.2 % (11.5-14.5); White Blood Count 5.5 K/mm3 (4.5-10.0)
[2020-04-16 12:38] LABS: Alanine Aminotransferase 19 U/L (4-50); Albumin Level 3.8 g/dL (3.5-5.1); Alkaline Phosphatase 77 U/L (38-126); Anion Gap 9 mmol/L (8-16); Aspartate Amino Transferase 22 U/L (17-59); Bilirubin,Total 0.2 mg/dL (0.2-1.3); Blood Urea Nitrogen 35 mg/dL (9-20); Calcium 9.5 mg/dL (8.4-10.2); Carbon Dioxide 20 mmol/L (22-30); Chloride 108 mmol/L (98-107); Estimated Glomerular Filt Rate 37; Glucose 99 mg/dL (75-110); Potassium 4.5 mmol/L (3.4-5.0); Sodium 137 mmol/L (137-145)
[2020-04-16 13:17] LABS: Immunoglobulin A 154 mg/dL (70-400); Immunoglobulin G 1093 mg/dL (700-1600); Immunoglobulin M 37 mg/dL (40-230)
[2020-04-19 12:53] LABS: Lambda Light Chain 803.5 mg/L (5.7-26.3)
[2020-04-20 20:31] LABS: Albumin 3.7 g/dL (3.8-4.8); Alpha 1 Globulin 0.5 g/dL (0.2-0.3); Alpha 2 Globulin 0.8 g/dL (0.5-0.9); Beta 1 Globulin 0.4 g/dL (0.4-0.6); Protein, Total 6.7 g/dL (6.1-8.1)
== END 2020-04-16 09:47 | disposition home or self-care (01) ==
LOC: ANHLAB 09:48
PROVIDERS: PCP Internal Medicine; Visit Provider Internal Medicine Hematology & Oncology
DX: D47.2 Monoclonal gammopathy (principal)
CPT/HCPCS: 36415; 80053; 82784; 83883; 84155; 84165; 85025; 86334

== ENCOUNTER 2020-04-20 11:19 | Outpatient (CLI) | payer MEDICARE, OTHER, SELFPAY ==
[2020-04-20 12:44] LABS: Iron 20 ug/dL (49-181)
[2020-04-20 12:55] LABS: Percent Iron Saturation 7 % (20-50)
[2020-04-20 13:56] LABS: Folic Acid 8.3 ng/mL (2.76->20); Vitamin B12 > 1000.0 pg/mL (239-931)
== END 2020-04-20 11:20 | disposition home or self-care (01) ==
LOC: ANHLAB 11:23
PROVIDERS: PCP Internal Medicine; Visit Provider Internal Medicine Hematology & Oncology
DX: D64.9 Anemia, unspecified (principal)
CPT/HCPCS: 36415; 82607; 82728; 82746; 83540; 83550